=== PATIENT | female | born 1940 | race Caucasian/White ===

== ENCOUNTER 2018-07-29 01:16 | Outpatient (CLI) | payer MEDICARE, SELFPAY ==
[2018-07-29 12:27] LABS: Anion Gap 6.6 mmol/L (3-11); BUN 17 mg/dL (7-18); CO2 30.4 mmol/L (21.0-32.0); Calcium 9.1 mg/dL (8.5-10.1); Chloride 103 mmol/L (98-107); Cholesterol 176 mg/dL (50-200); Estimated GFR 53.91 (mL/min/1.73m2); Glucose 110 mg/dL (70-100); HDL Cholesterol 62 mg/dL (40-60); LDL CHOLESTEROL 98 mg/dL (<100); Potassium 4.5 mmol/L (3.5-5.1); Sodium 140 mmol/L (136-145); Triglyceride 105 mg/dL (30-150)
== END 2018-07-29 01:36 ==
PROVIDERS: PCP Internal Medicine; Visit Provider Internal Medicine
DX: E78.00 Pure hypercholesterolemia, unspecified (principal); I10 Essential (primary) hypertension
CPT/HCPCS: 36415; 80048; 80061; 83721

== ENCOUNTER 2019-08-07 00:54 | Outpatient (CLI) | payer MEDICARE, SELFPAY ==
[2019-08-07 09:03] LABS: Anion Gap 7.5 mmol/L (3-11); BUN 16 mg/dL (7-18); CO2 30.5 mmol/L (21.0-32.0); CREATININE 0.97 mg/dL (0.55-1.02); Calculated LDL 144 mg/dL; Chloride 104 mmol/L (98-107); Cholesterol 223 mg/dL (50-200); Estimated GFR 55.69 (mL/min/1.73m2); Glucose 99 mg/dL (70-100); HDL Cholesterol 60 mg/dL (40-60); Potassium 4.5 mmol/L (3.5-5.1); Sodium 142 mmol/L (136-145); Triglyceride 98 mg/dL (30-150)
== END 2019-08-07 01:14 ==
PROVIDERS: PCP Internal Medicine; Visit Provider Internal Medicine
DX: I10 Essential (primary) hypertension (principal); E78.00 Pure hypercholesterolemia, unspecified
CPT/HCPCS: 36415; 80048; 80061

== ENCOUNTER 2019-08-20 01:38 | Outpatient (CLI) | payer MEDICARE, SELFPAY ==
--- NOTE | 2019-08-20 13:36 | DI.MAMMO_ITS ---
EXAM: MG MAMMO SCREENING CLINICAL HISTORY: screening Z12.39 TECHNIQUE: Mammograms were interpreted according to the usual protocol including computer analysis w [employer] CAD system, tomosynthesis and C-view imaging. COMPARISON: [id number] FINDINGS: The breasts are composed of fatty density tissue, breast density category A. There are no dominant m asses or microcalcifications there has been no significant interval change in comparison with the pre vious exams. IMPRESSION: Category 1, negative mammogram. Routine yearly screening mammograms are recommended. BI-RADS Cat 1 - Negative Breast Density - Category A - Almost entirely fatty
== END 2019-08-20 01:58 ==
PROVIDERS: PCP Internal Medicine; Visit Provider Internal Medicine
DX: Z12.31 Encounter for screening mammogram for malignant neoplasm of breast (principal)
CPT/HCPCS: 77063; 77067

== ENCOUNTER 2020-09-21 02:04 | Outpatient (CLI) | payer MEDICARE, SELFPAY ==
[2020-09-27 09:50] LABS: COVID-19 RT-PCR UVMMC Result Negative (Negative)
== END 2020-09-21 02:24 ==
PROVIDERS: PCP Internal Medicine; Visit Provider Internal Medicine
DX: Z20.828 Contact with and (suspected) exposure to other viral communicable diseases (principal)
CPT/HCPCS: U0003

== ENCOUNTER 2021-09-07 02:33 | Outpatient (CLI) | payer MEDICARE, SELFPAY ==
[2021-09-07 08:36] LABS: ALT 20 U/L (14-59); AST 20 U/L (15-37); Albumin 3.7 g/dL (3.4-5.0); Alkaline Phosphatase 125 U/L (46-116); Anion Gap 7.4 mmol/L (3-11); BUN 14 mg/dL (7-18); Bilirubin, Total 0.8 mg/dL (0.2-1.0); CO2 30.6 mmol/L (21.0-32.0); CREATININE 0.9 mg/dL (0.55-1.02); Calcium 8.8 mg/dL (8.5-10.1); Calculated LDL 174 mg/dL (<100); Chloride 104 mmol/L (98-107); Cholesterol 256 mg/dL (<200); Glucose 99 mg/dL (74-106); HDL Cholesterol 62 mg/dL (40-60); Sodium 142 mmol/L (136-145); Total Protein 6.7 g/dL (6.4-8.2); Triglyceride 103 mg/dL (<150)
== END 2021-09-07 02:34 | disposition home or self-care (01) ==
LOC: LBO 02:34
PROVIDERS: PCP Family Medicine; Visit Provider Family Medicine
DX: I10 Essential (primary) hypertension (principal); E78.00 Pure hypercholesterolemia, unspecified
CPT/HCPCS: 36415; 80053; 80061

== ENCOUNTER 2022-09-21 01:07 | Outpatient (CLI) | payer MEDICARE, SELFPAY ==
[2022-09-21 08:09] LABS: Anion Gap 2.6 mmol/L (3-11); BUN 20 mg/dL (7-18); CO2 31.4 mmol/L (21.0-32.0); CREATININE 1.1 mg/dL (0.55-1.02); Calcium 9.2 mg/dL (8.5-10.1); Chloride 104 mmol/L (98-107); Glucose 112 mg/dL (74-106); Potassium 4.3 mmol/L (3.5-5.1); Sodium 138 mmol/L (136-145)
== END 2022-09-21 01:08 | disposition home or self-care (01) ==
LOC: LBO 01:07
PROVIDERS: PCP Family Medicine; Visit Provider Family Medicine
DX: I10 Essential (primary) hypertension (principal)
CPT/HCPCS: 36415; 80048

== ENCOUNTER 2023-09-07 13:48 | Inpatient (IN) | payer MEDICARE, SELFPAY ==
[2023-09-07] VITALS (28 sets, daily range): BP systolic 115–205; BP diastolic 74–129; PULSE 66–145; RESP 18–32; TEMP 36.1–38.8; O2SAT 80–97
--- NOTE | 2023-09-07 13:45 | RT.EKG_ITS ---
APPROVED REPORT Exam: Resting ECG Reason for Exam: weakness Patient Location: E HR:138 bpm ECG Measurements Heart Rate 138 AXIS ID [id number] P [id number] QRSd 76 QRS 10 QT 301 T 269 QTc 457 Conclusion Atrial fibrillation...V-rate 114-165, irreg A-activity Repolarization abnormality, prob rate related...ST dep, T neg, tachycardia Narrow complex atrial fibrillation with rapid ventricular response at a rate of 138. Normal axis. L imits. Multiple PVCs. No prior for comparison.
--- NOTE | 2023-09-07 14:00 | DI.CT_ITS ---
Exam(s) CT CHEST PE CTA EXAM: CT CHEST PE CTA CLINICAL HISTORY: sob, CP, afib w/ rvr, cough, r/o PE/pneumonia. TECHNIQUE: Imaging Protocol: CT angiography of the chest was performed using pulmonary embolus kinjal col. Multi planar reconstructions were performed. CONTRAST MATERIAL: Intravenous: Omnipaque 350 Contrast volume: 100 cc COMPARISON: CT ABD PELVIS WITH CONTRAST from 08/27/2010 FINDINGS: CHEST: PULMONARY ARTERIES: There are no obvious intraluminal filling defects to suggest acute pulmonary embo li. LUNGS: There is a prominent area of infiltrate in the right middle lobe. There is relative sparing o f the right upper lobe and right lower lobe and there is no pleural effusion. No left-sided infiltra nicole evident. No findings in the trachea and mainstem bronchi.. There are no pleural effusions. MEDIASTINUM: There is no hilar nor mediastinal adenopathy. Visualized thyroid unremarkable. CARDIAC: Mild cardiomegaly. No pericardial effusion.Caliber of the thoracic aorta is within upper no rmal limits. No evidence of aortic dissection. There is no significant shift of the interventricular septum. PARTIALLY VISUALIZED UPPERMOST ABDOMEN: No obvious findings OSSEOUS: No significant osseous lesions.. IMPRESSION: 1. No evidence of acute pulmonary emboli. No pleural effusions. 2. Prominent area of infiltrate in the right middle lobe. 3. No intrathoracic adenopathy. RADIATION DOSE DELIVERED: Total DLP DATA REPOSITORY: All CT scans at this facility are submitted to the National Radiology Data Registry (NRDR) Dose Index Registry (DIR) with the [employer] (ACR). RADIATION OPTIMIZATION: All CT scans at this facility use at least one of these dose optimization te chniques: automated exposure control; mA and/or kV adjustment per patient size (includes targeted exa ms where dose is matched to clinical indication); or iterative reconstruction.
[2023-09-07] MEDS: Normal Saline 500 ML IV (14:21)
[2023-09-07 14:26] LABS: Abs Immature Grans 0.05 10^3/uL (0.0-0.06); Absolute Basophil Count 0.05 10^3/uL (0.0-0.2); Absolute Eosinophil Count 0.01 10^3/uL (0.0-0.7); Absolute Lymphocyte Count 0.85 10^3/uL (1.2-3.4); Absolute Neutrophil Count 7.65 10^3/uL (1.2-6.7); BE (Venous) 3 mmol/L (-2-3); Basophils % 0.5; Eosinophils % 0.1; HCO3 (Venous) 28 mmol/L (23-28); HCT 44.5 % (36.0-46.0); HGB 14.3 g/dL (11.2-15.7); Immature Grans % 0.5; Lymphocytes % 9.1; MCH 30.3 pg (27.0-33.0); MCHC 32.1 % (32.0-36.0); MCV 94 fL (80-95); MPV 11.2 fL (8.0-11.0); Monocytes % 7.5; Neutrophils % 82.3; O2 Sat (Venous) 57 %; Platelet Count 170 10^3/uL (130-400); RBC 4.72 10^6/uL (3.93-5.22); RDW 11.9 % (11.7-14.6); TCO2 (Venous) 26 mmol/L (24-29); WBC 9.31 10^3/uL (4.4-10.8); pCO2 (Venous) 46 mmHg (41-51); pH (Venous) 7.39 (7.31-7.41); pO2 (Venous) 29 mmHg
[2023-09-07 14:28] LABS: Lactate 1.8 mmol/L (0.6-1.4)
--- NOTE | 2023-09-07 14:29 | ED.GENADUL_ITS ---
Discharge Plan Disposition Patient Disposition: Admit to [facility] Condition: Improving Discharge Details Chief Complaint: SOB Clinical Impression: Hypoxemia, Atrial fibrillation, Community acquired pneumonia, Sepsis Primary Care Provider: Kvng Gill ED Provider: Stephon Proctor Home Meds and New Rx's Prescriptions: No Action pramipexole 0.25 mg tablet 0.25 mg PO HS Qty: 90 3RF hydrochlorothiazide 25 mg tablet 25 mg PO DAILY Qty: 90 3RF losartan 25 mg tablet 25 mg PO DAILY Qty: 90 3RF acetaminophen [Tylenol] 325 MG tablet 650 mg PO Q6H PRN aspirin [Mariama Chewable Aspirin] 81 MG tablet,chewable 1 tab PO DAILY Medical Decision Making 82-year-old female with past medical history of chronic kidney disease, restless leg syndrome, high cholesterol, hypertension, presents today for evaluation of feeling poorly. Patient states that since Saturday she has not been feeling well for the last 4 days. She states that it came on relatively quickly, she started with chills, and a mild cough. This is continued over the last 4 days. Over the last 2 days she has had mild shortness of breath with activity, then over the last 24 hours she has had mild chest tightness, worse with exertion. No chest tightness at rest though. She denies any significant productivity with a cough. She denies vomiting or diarrhea. No recent long surgeries, long trips, or history of blood clots or estrogen use. She denies any tobacco use. She denies any urinary frequency or burning. She did recently get her flu and COVID shot/booster. No other complaints at this time. Her is chronically unwell secondary to cancer and heart failure, but no acute illness at home. Physical exam demonstrates crackles in the lung villarreal, oxygenation appears stable however the patient is a bit tachypneic. He does admit to some mild pleuritic component of chest pain as well. No calf tenderness. Bedside echo demonstrates very reasonable ejection fraction around 55 to 60%. She does appear slightly volume diminished. She is in A-fib at a rapid rate, and she denies any history of A-fib. Suspect an infectious or PE based cause to her A- fib and current symptomatology. Suspect potential for cardiac strain. Will evaluate for concerning etiologies, will get a CTA of the chest if her renal function is appropriate, monitor closely and reassess. Will gently rehydrate initially with a 500 cc bolus and evaluate for heart rate change with fluid resuscitation. Blood pressure notably hypertensive. No indication for electrocardioversion, or Cardizem at this time. 4:25 PM Heart rate notably improved after fluid bolus, heart rate now down to the low 100s high 90s. Blood pressure stable. Patient did spike a temperature as well, and developed a mild oxygen demand requiring 2 L of O2 when she dipped down to the high 80s. Laboratory work-up shows no white count but she does have mild left shift. No bandemia. COVID flu and RSV are negative. Lactate slightly elevated at 1.8. Pro-Vinnie slightly elevated at 0.1. Renal function stable. Troponin normal. Thyroid function normal. CTA shows no evidence of PE but does show right middle lobe pneumonia. With the oxygen demand, age, and clinical assessment I do feel that admission is indicated at this time. proBNP is 2000 however she does not appear to be in florid fluid overload on exam. I do not think diuretics would be indicated at this time. She does have a penicillin allergy, we will treat with levofloxacin for atypical and community-acquired coverage. Patient does meet sepsis criteria and, but not septic shock criteria. Discussed the case with the hospitalist, Dr Rodriguez he agrees with the assessment and plan. I have extensively reviewed the treatment plan with the patient. I have addressed all patient concerns at this time. I have also discussed the plan with the admitting physician and they agree with the current assessment and plan and have agreed to assume responsibility for the patient. All parties demonstrate verbal understanding and agreement with our assessment and plan at this time. The documentation in this chart was dictated using [employer] dictation software. Please excuse any dictation errors. FINDINGS: Pulmonary arteries: Normal. No pulmonary emboli. Aorta: Unremarkable. No aortic aneurysm. No aortic dissection. Thyroid: Left thyroid lobe enlargement. Lungs: Right upper lobe subpleural 3 mm lung nodule. 5 mm subpleural nodule right upper lobe. Airspace disease/pneumonia in the right middle lobe. Partial lung consolidation. Pleural spaces: Small right pleural effusion. Heart: Unremarkable. No cardiomegaly. No pericardial effusion. Lymph nodes: Unremarkable. No enlarged lymph nodes. Liver: Left hepatic lobe cyst. Bones/joints: Unremarkable. No acute fracture. Soft tissues: Unremarkable. IMPRESSION: 1. Right middle lobe pneumonia. 2. Left thyroid lobe enlargement. 3. Micronodules.For patients at low risk (minimal or absent history of smoking and of other known risk factors), no routine follow-up is indicated. For patients at high risk (history of smoking or of other known risk factors), consider optional CT Chest at 12 months. (Reference: Heather) REFERENCES: Heather Nicole, et al. Guidelines for Management of Incidental Pulmonary Nodules Detected on CT Images: From the Fleischner Society 2017. Radiology. 2017;284(1):228-243. Thank you for allowing us to participate in the care of your patient. Dictated and Authenticated by: Ebenezer Queen MD 09/07/2023 4:06 PM Eastern Time ([place] & [place]) HPI General Date/Time Provider Initiated Documentation: 09/07/23 14:00 . HPI Narrative: 82-year-old female with past medical history of chronic kidney disease, restless leg syndrome, high cholesterol, hypertension, presents today for evaluation of feeling poorly. Patient states that since Saturday she has not been feeling well for the last 4 days. She states that it came on relatively quickly, she started with chills, and a mild cough. This is continued over the last 4 days. Over the last 2 days she has had mild shortness of breath with activity, then over the last 24 hours she has had mild chest tightness, worse with exertion. No chest tightness at rest though. She denies any significant productivity with a cough. She denies vomiting or diarrhea. No recent long surgeries, long trips, or history of blood clots or estrogen use. She denies any tobacco use. She denies any urinary frequency or burning. She did recently get her flu and COVID shot/booster. No other complaints at this time. Her is chronically unwell secondary to cancer and heart failure, but no acute illness at home. Related Data Home Medications Medication Instructions Recorded Confirmed acetaminophen 325 mg tablet 650 mg PO Q6H PRN 12/20/15 09/07/23 (Tylenol) aspirin 81 mg chewable tablet 1 tab PO DAILY 10/28/17 09/07/23 (Mariama Chewable Low Dose Aspirin) pramipexole 0.25 mg tablet 0.25 mg PO HS #90 tab-caps 10/05/22 09/07/23 hydrochlorothiazide 25 mg tablet 25 mg PO DAILY #90 tabs 07/15/23 09/07/23 losartan 25 mg tablet 25 mg PO DAILY #90 tabs 08/02/23 09/07/23 Previous Rx's Medication Instructions Recorded pramipexole 0.25 mg tablet 0.25 mg PO HS #90 tab-caps 10/05/22 hydrochlorothiazide 25 mg tablet 25 mg PO DAILY #90 tabs 07/15/23 losartan 25 mg tablet 25 mg PO DAILY #90 tabs 08/02/23 Allergies Allergy/AdvReac Type Severity Reaction Status Date / Time lisinopril AdvReac Unknown COUGH Verified 09/07/23 14:00 Penicillins AdvReac Unknown vomiting Verified 09/07/23 14:00 General Stated Complaint: SOB LILLY: 3 Review of Systems All systems reviewed & are unremarkable except as noted in HPI and below PFSH All Active Problems (Updated 09/07/23 @ 16:28 by Stephon Proctor DO) Sepsis (Acute) Community acquired pneumonia (Acute) Atrial fibrillation (Chronic) Hypoxemia (Acute) Chronic kidney disease (Chronic) SARS-CoV-2 positive (Acute ~01/2022) Paxlovid BMI 31.0-31.9,adult (Chronic) Impaired fasting glucose (Acute) Restless legs (Acute 05/03/15) Pure hypercholesterolemia (Acute 05/03/15) Osteoporosis (Acute 05/03/15) Lumbar radiculopathy (Acute 05/02/16) Medical History (Updated 09/07/23 @ 16:28 by Stephon Proctor DO) HTN (hypertension) RLS (restless legs syndrome) HLD (hyperlipidemia) Osteoporosis Lumbar radiculopathy Surgical History Ligation of fallopian tube Lumbar/Sacral Transforaminal Injection (06/05/16) [facility] Extraction of cataract (10/28/17) L eye, Dr. liu Family History (Updated 09/28/21 @ 08:42 by Cony Escamilla RN) Mother Essential hypertension Hyperlipidemia Brother Heart disease Father Cancer Lung Social History (Updated 10/05/22 @ 10:22 by Bianca Thomas) Smoking/Tobacco Use Status: Never Smoking risk assessment performed?: Yes Alcohol Intake: never Drug use: Never Substance use type: does not use Adopted: No Caregiver/Support person: No Foster care: No Household members: spouse Housing: house Number of Children: 3 number of grandchildren: 2 Communication Needs: None Education Level: high school Do you need help understanding health information?: Rarely current occupation: retired Pets and animals: No Sexually active: No Do you think of yourself as: decline to answer Current gender identity: female What is your relationship status?: How often do you talk on the phone with friends or family?: three or more times per week How often do you get together with friends or relatives?: once per week Do you belong to any clubs or organized social groups?: no Panel score (0-1 are the most socially isolated patients): 2 What type of physical activity do you participate in: decline to answer Special fortunato needs: No Seatbelt use: always Drive intox or ride w/intox racing car driver: No Working smoke detector in home: Yes Fire extinguisher in home: Yes Carbon monox detector in home: Yes Do you feel safe at home: Yes Do you feel safe in your relationship?: Yes Exam Narrative Exam Narrative: 1.Const: Well-nourished, Well-developed, appearing stated age 2.Eyes: PERRL, no conjunctival injection, and symmetrical lids. 3.ENT: Atraumatic external nose and ears. Dry MM. Neck: Symmetric, trachea midline, No thyromegaly. 4.CVS: +S1/S2, No murmurs or gallops. Peripheral pulses 2+ and equal in all extremities. Brisk capillary refill in all extremities. 5.RESP: Mild tachypnea, mild crackles in the right lung villarreal, minimal crackles in the left. 6.GI: Soft, Nontender/Nondistended, No hepatosplenomegaly. No guarding or rebound. 7.MSK: Normocephalic/Atraumatic, Extremities w/o deformity or ttp No cyanosis or clubbing, Normal movement of all extremities. No calf tenderness 8.Skin: Warm, Dry. No rashes or lesions. 9.Neuro: association executive II-XII grossly intact. Sensation grossly intact, no focal neurologic deficits. 10.Psych: (AAO) x3. Appropriate mood and affect Course Vital Signs Vital signs: Vital Signs Pulse 134 H 09/07/23 13:51 Respiratory Rate 30 H 09/07/23 13:51 Blood Pressure 205/129 H 09/07/23 13:51 Pulse Oximetry 95 09/07/23 13:51 Pulse 66 09/07/23 14:01 Pulse 138 H 09/07/23 14:01 Respiratory Rate 29 H 09/07/23 14:01 Respiratory Effort Short of Breath 09/07/23 13:56 Blood Pressure 177/90 H 09/07/23 14:01 Blood Pressure Mean 118 09/07/23 14:01 Pulse Oximetry 95 09/07/23 13:51 Oxygen Delivery Method Room Air 09/07/23 13:51 Oxygen Flow Rate 0 09/07/23 13:51 Lab/Test Results Lab/Test Results: Laboratory Tests Range/Units 09/07/23 14:18 VBG pH (7.31-7.41) 7.39 VBG pCO2 (41-51) mmHg 46 VBG pO2 mmHg 29 VBG HCO3 (23-28) mmol/L 28 VBG Total CO2 (24-29) mmol/L 26 VBG O2 Saturation % 57 VBG Base Excess (-2-3) mmol/L 3 VBG Lactate (0.6-1.4) mmol/L 1.8 H Critical Care Time Critical Care Time Critical Care Time: Yes Total Critical Care Time: 30 Attestation: Upon my evaluation, this patient had a high probability of imminent or life- threatening deterioration, which required my direct attention, intervention, and personal management. I have personally provided 30 minutes of critical care time exclusive of time spent on separately billable procedures. Time includes review of laboratory data, radiology results, discussion with consultants, and monitoring for potential decompensation. Interventions were performed as documented. POCUS Exam (ED) Limited Cardiac Exam DATE OF EXAM: 09/07/23 TIME OF EXAM: 14:29 PROVIDER THAT PERFORMED THE STUDY: Stephon Proctor IS THIS A REPEAT EXAM DURING THIS ENCOUNTER: no REASON FOR EXAM: Dyspnea VISUALIZED STRUCTURES: Left atrium, Left ventricle, Right ventricle and Interventricular septum VIEW OBTAINED: Parasternal long-axis PERTINENT FINDINGS/IMPRESSION: No apparent abnormalities Exam complete
[2023-09-07 14:42] LABS: INR 1.1 (0.9-1.1); PTT Activated 28.9 sec (23.6-32.8)
[2023-09-07 14:54] LABS: ALT 16 U/L (14-59); AST 17 U/L (15-37); Albumin 3.5 g/dL (3.4-5.0); Alkaline Phosphatase 110 U/L (46-116); Anion Gap 8.9 mmol/L (3-11); BUN 25 mg/dL (7-18); Bilirubin, Total 1.2 mg/dL (0.2-1.0); CO2 30.1 mmol/L (21.0-32.0); CREATININE 1.3 mg/dL (0.55-1.02); Calcium 9.7 mg/dL (8.5-10.1); Chloride 99 mmol/L (98-107); Estimated GFR 41.31 (mL/min/1.73m2); Glucose 115 mg/dL (74-106); NT-proBNP 2135 pg/mL (<300); Potassium 3.8 mmol/L (3.5-5.1); Sodium 138 mmol/L (136-145); TSH (W/Ref FT4) 0.24 uIU/mL (0.36-3.74); Total Protein 7.9 g/dL (6.4-8.2); Troponin I < 50 ng/L (<or=60)
[2023-09-07] MEDS: Omnipaque 350 MG/ML 100 ML BTL IJ (15:08)
[2023-09-07] MEDS: Normal Saline - Diluent 50 ML VIAL IJ (15:10)
[2023-09-07 15:11] LABS: COVID-19 PCR Negative (Negative); Influenza A PCR Negative (Negative); Influenza B PCR Negative (Negative); RSV PCR Negative (Negative)
[2023-09-07 15:16] LABS: FREE T4 1.39 ng/dL (0.76-1.46)
[2023-09-07 15:16] LABS: Source Nasopharynx
[2023-09-07] MEDS: ACETAMINOPHEN 1,000 MG/100 ML BTL 400 MG IVPB (15:55)
[2023-09-07] MEDS: levoFLOXacin 750 MG/150 ML BAG 100 MG IVPB (15:56)
[2023-09-07 15:58] LABS: Procalcitonin 0.1 ng/mL
--- NOTE | 2023-09-07 16:07 | DI.VRAD_ITS ---
PROCEDURE INFORMATION: Exam: CTA Chest With Contrast Exam date and time: 09/07/2023 3:05 PM Age: 82 years old Clinical indication: Cough and shortness of breath; Patient HX: SOB, cp, afib w/ rvr, cough, ; additional info: R/O pe, pneumonia TECHNIQUE: Imaging protocol: Computed tomographic angiography of the chest with contrast. Exam focused on the arteries. 3D rendering (Not supervised by radiologist): MIP and/or 3D reconstructed images were created by the technologist. COMPARISON: No relevant prior studies available. FINDINGS: Pulmonary arteries: Normal. No pulmonary emboli. Aorta: Unremarkable. No aortic aneurysm. No aortic dissection. Thyroid: Left thyroid lobe enlargement. Lungs: Right upper lobe subpleural 3 mm lung nodule. 5 mm subpleural nodule right upper lobe. Airspace disease/pneumonia in the right middle lobe. Partial lung consolidation. Pleural spaces: Small right pleural effusion. Heart: Unremarkable. No cardiomegaly. No pericardial effusion. Lymph nodes: Unremarkable. No enlarged lymph nodes. Liver: Left hepatic lobe cyst. Bones/joints: Unremarkable. No acute fracture. Soft tissues: Unremarkable. IMPRESSION: 1. Right middle lobe pneumonia. 2. Left thyroid lobe enlargement. 3. Micronodules.For patients at low risk (minimal or absent history of smoking and of other known risk factors), no routine follow-up is indicated. For patients at high risk (history of smoking or of other known risk factors), consider optional CT Chest at 12 months. (Reference: Heather) REFERENCES: Heather H, et al. Guidelines for Management of Incidental Pulmonary Nodules Detected on CT Images: From the Fleischner Society 2017. Radiology. 2017;284(1):228-243. Dictated and Authenticated by: Ebenezer Queen MD. Ordering:JUMANA Szymanski MD
--- NOTE | 2023-09-07 16:28 | W.PM.HP.N ---
Date of service: 09/07/23 Time of Service: 16:53 Assessment and Plan Assessment and plan (1) Sepsis: Status: Acute Assessment and plan: - Patient met sepsis criteria on admission with heart rate greater than 90, respiratory rate greater than 20, and a fever of 102 ?F as well as source of infection being right middle lobe pneumonia -Heart rate has improved after initiation of IV fluids -Started on Levaquin given penicillin allergy, will continue -We will follow-up with blood cultures, and a.m. CBC Qualifiers: Sepsis acute organ dysfunction status: without acute organ dysfunction Sepsis type: sepsis due to unspecified organism Qualified Code(s): A41.9 - Sepsis, unspecified organism (2) Community acquired pneumonia: Status: Acute Assessment and plan: -Source of infection as noted above Qualifiers: Laterality: right Lung location: middle lobe of lung Qualified Code(s): J18.9 - Pneumonia, unspecified organism (3) Atrial fibrillation: Status: Chronic Assessment and plan: - Patient initially presented with A-fib RVR with heart rate 130 -This resolved after patient was given IV fluids -This is likely a stress reaction due to patient's pneumonia -We will monitor on telemetry Qualifiers: Atrial fibrillation type: unspecified Qualified Code(s): I48.91 - Unspecified atrial fibrillation (4) Acute respiratory failure with hypoxia: Status: Acute Assessment and plan: - Likely secondary to sepsis community-acquired pneumonia as noted above -Currently on 2 L nasal cannula -Wean as tolerated with goal oxygen saturation greater than 92% (5) Chronic kidney disease: Status: Chronic Assessment and plan: - Baseline creatinine 1.1, was 1.3 in the emergency department -We will follow-up a.m. BMP (6) HTN (hypertension): Assessment and plan: - Continue home antihypertensives including HCTZ and losartan History of Present Illness History of Present Illness Chief Complaint: Feeling unwell Narrative: 82-year-old female with past medical history of CKD, restless leg, hyperlipidemia and hypertension presenting emergency department for feeling poorly. She states that since 09/04/2023 she had not been feeling well stating that this feeling came on quick and associated with chills and a mild cough that continued over the last 4 days. Over the last 2 days she states she developed mild shortness of breath with exertion and over the last 4 days progressed to some chest tightness with exertion but not at rest. She states she does have a cough but has not been productive of any sputum. She denies any lightheadedness, dizziness, nausea vomiting or diarrhea. In the emergency department the patient was noted as being tachycardic with heart rate in the 130s that was determined to be A-fib RVR and the patient has no history. Blood pressure was 166/78, respiratory rate was in the high 20s low 30s, initially she was saturating well on room air but ultimately required 2 L nasal cannula to maintain oxygen saturation greater than 92%. CBC and CMP were unremarkable though proBNP was 2134, Pro-Vinnie was 0.11, troponin was negative, and lactic acid was 1.8. Given concern for possible PE a CTA chest was ordered and showed right middle lobe pneumonia. Patient had penicillin allergy and was started on Levaquin. Which time emergency room physician paged hospitalist for admission for patient with sepsis secondary to community-acquired pneumonia with acute hypoxic respiratory failure. Review of Systems All systems reviewed & are unremarkable except as noted in HPI and below PFSH All Active Problems (Updated 09/07/23 @ 16:58 by Issa Rodriguez MD) Acute respiratory failure with hypoxia (Acute) Sepsis (Acute) Community acquired pneumonia (Acute) Atrial fibrillation (Chronic) Hypoxemia (Acute) Chronic kidney disease (Chronic) SARS-CoV-2 positive (Acute ~01/2022) Paxlovid BMI 31.0-31.9,adult (Chronic) Impaired fasting glucose (Acute) Restless legs (Acute 05/03/15) Pure hypercholesterolemia (Acute 05/03/15) Osteoporosis (Acute 05/03/15) Lumbar radiculopathy (Acute 05/02/16) Medical History (Updated 09/07/23 @ 16:58 by Issa Rodriguez MD) HTN (hypertension) RLS (restless legs syndrome) HLD (hyperlipidemia) Osteoporosis Lumbar radiculopathy Surgical History Ligation of fallopian tube Lumbar/Sacral Transforaminal Injection (06/05/16) Pain [facility] Extraction of cataract (10/28/17) L eye, Dr. liu Family History (Updated 09/28/21 @ 08:42 by Cony Escamilla RN) Mother Essential hypertension Hyperlipidemia Brother Heart disease Father Cancer Lung Social History (Updated 10/05/22 @ 10:22 by Bianca Thomas) Smoking/Tobacco Use Status: Never Smoking risk assessment performed?: Yes Alcohol Intake: never Drug use: Never Substance use type: does not use Adopted: No Caregiver/Support person: No Foster care: No Household members: spouse Housing: house Number of Children: 3 number of grandchildren: 2 Communication Needs: None Education Level: high school Do you need help understanding health information?: Rarely current occupation: retired Pets and animals: No Sexually active: No Do you think of yourself as: decline to answer Current gender identity: female What is your relationship status?: How often do you talk on the phone with friends or family?: three or more times per week How often do you get together with friends or relatives?: once per week Do you belong to any clubs or organized social groups?: no Panel score (0-1 are the most socially isolated patients): 2 What type of physical activity do you participate in: decline to answer Special fortunato needs: No Seatbelt use: always Drive intox 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 Working smoke detector in home: Yes Fire extinguisher in home: Yes Carbon monox detector in home: Yes Do you feel safe at home: Yes Do you feel safe in your relationship?: Yes Meds Allergies and Home Medications Allergies Allergy/AdvReac Type Severity Reaction Status Date / Time lisinopril AdvReac Unknown COUGH Verified 09/07/23 14:00 Penicillins AdvReac Unknown vomiting Verified 09/07/23 14:00 Home Medications Medication Instructions Recorded Confirmed Type acetaminophen 325 mg tablet 650 mg PO Q6H PRN 12/20/15 09/07/23 History (Tylenol) aspirin 81 mg chewable tablet 1 tab PO DAILY 10/28/17 09/07/23 History (Mariama Chewable Low Dose Aspirin) pramipexole 0.25 mg tablet 0.25 mg PO HS #90 tab-caps 10/05/22 09/07/23 Rx hydrochlorothiazide 25 mg tablet 25 mg PO DAILY #90 tabs 07/15/23 09/07/23 Rx losartan 25 mg tablet 25 mg PO DAILY #90 tabs 08/02/23 09/07/23 Rx Exam Narrative Exam Narrative: Well-appearing older female sitting on the edge of the bed in no acute distress, nasal cannula has since been removed, heart regular rate and rhythm, lungs clear to auscultation bilaterally with the exception of coarse of breath sounds in the right middle and lower lobe, abdomen soft, nontender, nondistended Results Labs 09/07/23 14:18 09/07/23 14:18 Labs: Laboratory Results - last 24 hr 09/07/23 09/07/23 09/07/23 14:18 14:20 15:00 WBC 9.31 RBC 4.72 Hgb 14.3 Hct 44.5 MCV 94 MCH 30.3 MCHC 32.1 RDW 11.9 Plt Count 170 MPV 11.2 H Immature Gran % 0.5 Neutrophils % 82.3 Lymphocytes % 9.1 Monocytes % 7.5 Eosinophils % 0.1 Basophils % 0.5 Nucleated RBC % 0.0 Absolute Neutrophils 7.65 H Absolute Lymphocytes 0.85 L Absolute Monocytes 0.70 Absolute Eosinophils 0.01 Absolute Basophils 0.05 PT 11.0 INR 1.1 APTT 28.9 VBG pH 7.39 VBG pCO2 46 VBG pO2 29 VBG HCO3 28 VBG Total CO2 26 VBG O2 Saturation 57 VBG Base Excess 3 VBG Lactate 1.8 H Sodium 138 Potassium 3.8 Chloride 99 Carbon Dioxide 30.1 Anion Gap 8.9 BUN 25 H Creatinine 1.3 H Est GFR (CKD-EPI 2020) 41.31 Glucose 115 H Calcium 9.7 Total Bilirubin 1.2 H AST 17 ALT 16 Alkaline Phosphatase 110 Troponin I < 50 NT-Pro-B Natriuret Pep 2135 H Total Protein 7.9 Albumin 3.5 Procalcitonin 0.1 TSH 0.24 L Free T4 1.39 COVID-19 Source Nasopharynx SARS-CoV-2 (PCR) Negative Influenza Type A (PCR) Negative Influenza Type B (PCR) Negative RSV (PCR) Negative Last Vital Signs Temp 102 F H 09/07/23 15:45 Pulse 107 H 09/07/23 14:31 Resp 32 H 09/07/23 15:50 BP 166/77 H 09/07/23 14:31 Pulse Ox 95 09/07/23 15:50 Time Spent Time spent with Patient: >75 minutes Time was spent: preparing to see the patient(eg.review tests), obtaining and/or reviewing separately otained hiistory, ordering medications,tests, procedures, referring, communicating with other health career resource specialist, indepentently interpreting results, counseling the patient and care coordination
[2023-09-07 18:04] LABS: Troponin I < 50 ng/L (<or=60)
[2023-09-07 18:52] LABS: Bilirubin Negative (Negative); Blood Negative (Negative); Clarity Clear (Clear); Glucose Negative (Negative); Ketones 15 mg/dL (Negative); Leukocyte Esterase Negative (Negative); Nitrite Negative (Negative); pH 5.5 (5-8)
[2023-09-07 19:04] LABS: Bacteria Rare HPF (Negative); C & S Indicated? C&S Done As Ordered; Casts Negative LPF (Negative); Crystals Negative HPF (Negative); Epithelial Cells Rare HPF (Negative); Mucus Negative (Negative); RBC Negative HPF (0-2); WBC 0-2 HPF (0-5)
[2023-09-07] MEDS: Pramipexole 0.25 MG TAB PO (21:13)
[2023-09-07] MEDS: Acetaminophen 325 MG TAB PO (22:27)
[2023-09-08] VITALS (7 sets, daily range): BP systolic 124–166; BP diastolic 75–87; PULSE 70–98; RESP 14–18; TEMP 35.8–36.7; O2SAT 92–97
[2023-09-08 06:22] LABS: HCT 35.8 % (36.0-46.0); HGB 11.4 g/dL (11.2-15.7); MCH 29.9 pg (27.0-33.0); MCHC 31.8 % (32.0-36.0); MCV 94 fL (80-95); MPV 11.4 fL (8.0-11.0); Platelet Count 133 10^3/uL (130-400); RBC 3.81 10^6/uL (3.93-5.22); RDW 12.1 % (11.7-14.6); WBC 8.14 10^3/uL (4.4-10.8)
[2023-09-08 06:37] LABS: BUN 20 mg/dL (7-18); CREATININE 1.1 mg/dL (0.55-1.02); Chloride 103 mmol/L (98-107); Estimated GFR 50.48 (mL/min/1.73m2); Glucose 101 mg/dL (74-106); Magnesium 1.8 mg/dL (1.8-2.4); Potassium 3.5 mmol/L (3.5-5.1); Sodium 137 mmol/L (136-145)
[2023-09-08] MEDS: Losartan 25 MG TAB PO (08:36)
[2023-09-08] MEDS: hydroCHLOROthiazide 25 MG TAB PO (08:36)
[2023-09-08] MEDS: Enoxaparin 40 MG/0.4 ML SYR SC (08:36)
[2023-09-08] MEDS: Aspirin 81 MG CHEW PO (08:36)
--- NOTE | 2023-09-08 09:10 | PDOC.CMIN ---
Date of service: 09/08/23 Time of Service: 09:10 Care Management Initial Assmt Initial Assessment REASON FOR HOSPITALIZATION:: sepsis and pneumonia PREVIOUS FUNCTIONAL STATUS/SOCIAL/FAMILY SUPPORTS:: Kenna lives in a single family home in [place], [place] with her Stanislav. They have 3 children who all live out of state. They also have 4 grandchildren and 3 great grandchildren. 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 She is independent at baseline and does not receive any community services. CURRENT FUNCTIONAL STATUS:: Leticia was sitting up in bed chatting with a visitor when CM met with her. She was smiling and engaged readily with CM, known to her from other hospitalizations. Her was hospitalized just last month and CM worked with him as well. In talking about her family, Leticia shared that 2 of her children and all of her grandchildren have visited within the past month or two. As one is from [place] and another is from [place], they do not have that opportunity very often. ADVANCE DIRECTIVES:: ON file. Stanislav Hill VANESSA Has patient been provided with info about the portal/API?: Yes Did the patient sign up for the portal?: No CODE STATUS:: DNR/DNI INSURANCE COVERAGE / FINANCIAL ISSUES:: [employer] Medicare Supplement CURRENT HOME/COMMUNITY SERVICES/EQUIPMENT:: none PRIMARY CARE PHYSICIAN:: Kvng Gill POTENTIAL DISCHARGE NEEDS:: follow up with PCP and plan of care PATIENT/FAMILY EDUCATION NEEDS:: Review of discharge instructions, activity, limitations, follow up plan, discuss Ask Me Three TRANSPORTATION:: via private vehicle with family PLAN:: Anticipate Kenna will be discharged home with no new services when medically cleared. She will follow up with her community providers and plan of care and transport with family. CM will support Kenna and assess for ongoing discharge concerns. PFSH All Active Problems (Updated 09/07/23 @ 16:58 by Issa Rodriguez MD) Acute respiratory failure with hypoxia (Acute) Sepsis (Acute) Community acquired pneumonia (Acute) Atrial fibrillation (Chronic) Hypoxemia (Acute) Chronic kidney disease (Chronic) SARS-CoV-2 positive (Acute ~01/2022) Paxlovid BMI 31.0-31.9,adult (Chronic) Impaired fasting glucose (Acute) Restless legs (Acute 05/03/15) Pure hypercholesterolemia (Acute 05/03/15) Osteoporosis (Acute 05/03/15) Lumbar radiculopathy (Acute 05/02/16) Medical History (Updated 09/07/23 @ 16:58 by Issa Rodriguez MD) HTN (hypertension) RLS (restless legs syndrome) HLD (hyperlipidemia) Osteoporosis Lumbar radiculopathy Surgical History Ligation of fallopian tube Lumbar/Sacral Transforaminal Injection (06/05/16) Pain [facility] Extraction of cataract (10/28/17) L eye, Dr. liu Family History (Updated 09/28/21 @ 08:42 by Cony Escamilla RN) Mother Essential hypertension Hyperlipidemia Brother Heart disease Father Cancer Lung Social History (Updated 10/05/22 @ 10:22 by Bianca Thomas) Smoking/Tobacco Use Status: Never Smoking risk assessment performed?: Yes Alcohol Intake: never Drug use: Never Substance use type: does not use Adopted: No Caregiver/Support person: No Foster care: No Household members: spouse Housing: house Number of Children: 3 number of grandchildren: 2 Communication Needs: None Education Level: high school Do you need help understanding health information?: Rarely current occupation: retired Pets and animals: No Sexually active: No Do you think of yourself as: decline to answer Current gender identity: female What is your relationship status?: How often do you talk on the phone with friends or family?: three or more times per week How often do you get together with friends or relatives?: once per week Do you belong to any clubs or organized social groups?: no Panel score (0-1 are the most socially isolated patients): 2 What type of physical activity do you participate in: decline to answer Special fortunato needs: No Seatbelt use: always Drive intox or ride 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
[2023-09-08 12:44] LABS: HCT 39.8 % (36.0-46.0); HGB 12.7 g/dL (11.2-15.7)
--- NOTE | 2023-09-08 15:58 | W.PM.PROGNOT ---
Date of Service Date of service: 09/08/23 Time of Service: 15:58 Assessment and Plan Assessment and plan (1) Sepsis: Status: Acute Assessment and plan: Clinically better. Continue levofloxacin. Await blood cx. Obtain PNA studies. Encourage IS/acapella. Qualifiers: Sepsis type: sepsis due to unspecified organism Sepsis acute organ dysfunction status: without acute organ dysfunction Qualified Code(s): A41.9 - Sepsis, unspecified organism (2) Community acquired pneumonia: Status: Acute Assessment and plan: As above Qualifiers: Laterality: right Lung location: middle lobe of lung Qualified Code(s): J18.9 - Pneumonia, unspecified organism (3) Atrial fibrillation: Status: Resolved Assessment and plan: A single episode in setting acute illness, resolved with IVF. Continue monitoring on tele. Obtain an echocardiogram. I do note a low TSH which will be repeated in am. Qualifiers: Atrial fibrillation type: unspecified Qualified Code(s): I48.91 - Unspecified atrial fibrillation (4) Acute respiratory failure with hypoxia: Status: Resolved Assessment and plan: In setting of PNA. Passed exercise oximetry on RA. Continue to Monitor O2 sats. (5) Chronic kidney disease: Status: Chronic Assessment and plan: Near baseline. Recheck labs in am. (6) HTN (hypertension): Assessment and plan: Continue home HCTZ and losartan (7) DVT prophylaxis: Status: Acute Assessment and plan: SC enoxaparin (8) Discharge planning issues: Status: Acute Assessment and plan: DNR/DNI C/s PT Anticipate discharge home in the next 24 - 48 hrs Subjective Subjective Interval history since last seen: Ms Hill states that she is feeling better but not back to normal. Describes right-sided rib/chest pain on cough (nonproductive). Denies dizziness, SOB at rest, nausea. Does report COLLAZO and feeling unsteady on her feet, requiring a walker, which she usually does not. She agrees to stay in the hospital another day to get evaluated by PT. Passed exercise oximetry on RA. Exam Narrative Exam Narrative: General: Pleasant elderly female who is A&Ox3, sitting up comfortably in a chair, looks tired HEENT: EOMI, MMM Heart: RRR, no m/r/g Lungs: expiratory wheezing on R Abdomen: soft, nontender, nondistended Extremities: no edema BLEs Objective Last Vital Signs Temp 36.1 C L 09/08/23 15:33 Pulse 93 H 09/08/23 15:33 Resp 18 09/08/23 15:33 BP 127/79 09/08/23 15:33 Pulse Ox 95 09/08/23 15:33 Laboratory Results - last 24 hr 09/07/23 09/07/23 09/07/23 15:00 17:35 18:00 WBC RBC Hgb Hct MCV MCH MCHC RDW Plt Count MPV Sodium Potassium Chloride Carbon Dioxide Anion Gap BUN Creatinine Est GFR (CKD-EPI 2020) Glucose Calcium Magnesium Troponin I < 50 Procalcitonin 0.1 Urine Color Yellow Urine Clarity Clear Urine pH 5.5 Ur Specific [place] 1.010 Urine Protein 30 H Urine Ketones 15 H Urine Blood Negative Urine Nitrite Negative Urine Bilirubin Negative Urine Urobilinogen 1.0 H Ur Leukocyte Esterase Negative Urine RBC Negative Urine WBC 0-2 Ur Epithelial Cells Rare Urine Crystals Negative Urine Bacteria Rare Urine Casts Negative Urine Mucus Negative Ur Culture Indicated? C&S Done As Ordered Urine Glucose Negative 09/08/23 09/08/23 05:39 12:27 WBC 8.14 RBC 3.81 L Hgb 11.4 D 12.7 Hct 35.8 L 39.8 MCV 94 MCH 29.9 MCHC 31.8 L RDW 12.1 Plt Count 133 MPV 11.4 H Sodium 137 Potassium 3.5 Chloride 103 Carbon Dioxide 28.0 Anion Gap 6.0 BUN 20 H Creatinine 1.1 H Est GFR (CKD-EPI 2020) 50.48 Glucose 101 Calcium 9.0 Magnesium 1.8 Troponin I Procalcitonin Urine Color Urine Clarity Urine pH Ur Specific [place] Urine Protein Urine Ketones Urine Blood Urine Nitrite Urine Bilirubin Urine Urobilinogen Ur Leukocyte Esterase Urine RBC Urine WBC Ur Epithelial Cells Urine Crystals Urine Bacteria Urine Casts Urine Mucus Ur Culture Indicated? Urine Glucose Time Spent with Patient Time Spent with Patient: 25-34 minutes Time was spent: preparing to see the patient(eg.review tests), obtaining and/or reviewing separately otained hiistory, ordering medications,tests, procedures, referring, communicating with other health critical care paramedic, indepentently interpreting results, counseling the patient and care coordination
[2023-09-08] MEDS: Pramipexole 0.25 MG TAB PO (21:48)
[2023-09-09] MEDS: Metoprolol 12.5 MG TAB PO ×2 (00:26→08:13)
[2023-09-09 02:25] VITALS: BP 138/91; PULSE 106; RESP 18; TEMP 36.6; O2SAT 91
[2023-09-09 02:30] VITALS: O2SAT 95
[2023-09-09 02:32] VITALS: RESP 20
[2023-09-09 06:46] LABS: Abs Immature Grans 0.04 10^3/uL (0.0-0.06); Absolute Basophil Count 0.05 10^3/uL (0.0-0.2); Absolute Eosinophil Count 0.06 10^3/uL (0.0-0.7); Absolute Lymphocyte Count 1.13 10^3/uL (1.2-3.4); Absolute Monocyte Count 0.66 10^3/uL (0.1-0.8); Absolute Neutrophil Count 4.57 10^3/uL (1.2-6.7); Basophils % 0.8; Eosinophils % 0.9; HCT 36.7 % (36.0-46.0); HGB 12.1 g/dL (11.2-15.7); Immature Grans % 0.6; Lymphocytes % 17.4; MCV 94 fL (80-95); MPV 11.7 fL (8.0-11.0); Monocytes % 10.1; Neutrophils % 70.2; Platelet Count 168 10^3/uL (130-400); RDW 12.3 % (11.7-14.6); RDW-SD 42.6 fL; WBC 6.51 10^3/uL (4.4-10.8)
[2023-09-09 07:12] LABS: Anion Gap 6.1 mmol/L (3-11); BUN 24 mg/dL (7-18); CO2 28.9 mmol/L (21.0-32.0); CREATININE 1.1 mg/dL (0.55-1.02); Chloride 104 mmol/L (98-107); Estimated GFR 50.48 (mL/min/1.73m2); Glucose 114 mg/dL (74-106); Magnesium 1.6 mg/dL (1.8-2.4); Potassium 3.6 mmol/L (3.5-5.1); Sodium 139 mmol/L (136-145); TSH 0.54 uIU/mL (0.36-3.74)
[2023-09-09 07:46] VITALS: BP 114/62; PULSE 99; RESP 17; TEMP 36.9; O2SAT 94
--- NOTE | 2023-09-09 08:00 | DI.US_ITS ---
APPROVED REPORT EXAM: Comprehensive 2D, Doppler, and color-flow Echocardiogram Patient Location: In-Patient Room/Bed: 229 Converting Supervisor: Issa Mcdowell RDCS (AE) Indications: afib Other Information Study Quality: Adequate Conclusion Mild concentric left ventricular hypertrophy. Small left ventricular chamber size. Ejection fractio n Ryan's biplane is 83%. Visually it appears 60 to 65%. There are no segmental wall motion abnor malities. Diastolic function is indeterminate given atrial fibrillation Normal right ventricular size and systolic function Left atrium is mildly enlarged. Normal right atrial size Aortic valve is sclerotic without stenosis or regurgitation Mitral annular calcification. Mild mitral regurgitation Mild tricuspid regurgitation. Estimated right ventricular systolic pressure is 22 mmHg Wall motion Left Ventricle Left ventricular cavity is small. The left ventricular systolic function is normal. The left ventricu lar ejection fraction is within the normal range. Mild concentric left ventricular hypertrophy. There is global hypokinesis of the left ventricle. Indeterminate due to atrial fibrillation There is no ve ntricular septal defect visualized. LVEF is 60-65%. Right Ventricle The right ventricle is normal size. Right ventricular systolic function is grossly normal. The RVSP i s 22.5 mmHg. Atria Left atrium is mildly dilated. The right atrium size is normal. The interatrial septum is intact with no evidence for an atrial septal defect. Aortic Valve The Aortic valve is sclerotic. Aortic valve is trileaflet. There is no aortic valvular stenosis. No a ortic regurgitation is present. Mitral Valve Moderate mitral annular calcification. No evidence of mitral valve stenosis. Mild mitral regurgitatio n. Tricuspid Valve The tricuspid valve is normal in structure. There is no tricuspid valve stenosis. Mild tricuspid regu rgitation. Pulmonic Valve The pulmonary valve is normal in structure. There is no pulmonic valvular stenosis. There is no pulmo michael valvular regurgitation. Great Vessels Aortic root is normal in size. The ascending aorta is normal in size. Aortic arch is normal in calibe r. IVC is normal in size and collapses >50% with inspiration. Pericardium There is no pericardial effusion. 2D Dimensions IVSD d PLAX 1.12 cm F: 0.6-1.0 Ao Root d 3.38 cm F: 2.7 - 3.3 LVPW d PLAX 1.07 cm F: 0.6 - 1.0 Ao Asc Diam d 3.18 cm F: 2.3 - 3.1 LVID d PLAX 3.14 cm F: 3.8 - 5.2 LVDs 1.55 cm F: 2.2 - 3.5 LV EF Teichholz 82.9 % FS 50.43 % LV EDV (Teich) 39.0 mL LV ESV (Teich) 6.7 mL Stroke Vol Index (Teich) 17.97 Auto EF LV EDV A4C 57.6 mL LV EDV A2C 45.2 mL LV EDV BP LV ESV A4C 30.8 mL LV ESV A2C 23.6 mL LV ESV BP LVEF(%) A4C 46.5 % LVEF(%) A2C 47.7 % LVEF(%) BP LV SV A4C 26.8 ml LV SV A2C 21.6 ml LV SV BP LV CO A4C 3.0 L/min LV CO A2C 2.5 L/min LV CO BP HR A4C 113.21 BPM HR A2C 117.66 BPM LV EDV Index (BP) LA Volume LA Length A4C 5.5 cm LA Length A2C LA Area A4C s 14.36 cm2 LA Area A2C s LA Vol A4C A-L 32.02 mL LA Vol A2C A-L LA Vol Biplane A-L LA Vol A4C MOD 30.5 mL LA Vol A2C MOD LA Vol BP MOD RA Volume RA Area A4C 9.8 cm2 RA ESV A4C (A-L) 20.6mL RA Vol/BSA A4C A-L RA Length A4C 4.0 cm RA ESV A4C (MOD) 19.5mL LV Diastology MV E' medial 0.097 (>0.07 m/s) MV E Vmax 1.08 (0.4-1.3 m/s) MV E/E' MED 11.11 (<14) MV A Vmax 0.60 (0.4-1.3 m/s) MV E' lateral 0.129 (>0.1 m/s) E/A Ratio 1.8 MV E/E' LAT 8.41 (<14) MV E' Average 0.113 m/s MV E/E'(average) 9.57 Aortic Valve AoV Vmax 1.17 m/s LVOT Vmax 0.99 m/s AoV Peak Grad 5.4 mmHg LVOT Peak Grad 3.9 mmHg AoV Area (Vmax) 2.56 cm2 LVOT VTI 0.162 m AoV VTI 0.223 m LVOT Mean Grad 2.0 mmHg AoV Mean Bishop. 0.83 m/s LVOT SV 48.60 mL AoV Mean Grad 3.1 mmHg LVOT Diam s 1.95 cm AoV Area (VTI) 2.18 cm2 Velocity Ratio 0.85 Mitral Valve MV DT 203 (160-240 msec) Pulmonary Valve PV Vmax 0.86 (0.5-1.5 m/s) RVOT Vmax 0.66 m/s PV Peak Grad 2.9 mmHg RVOT Peak Gr. 1.7 mmHg PV Mean Bishop 0.66 m/s RVOT VTI 0.102 m PV Mean Grad 1.9 mmHg RVOT Mean Gr. 1.0 mmHg Tricuspid Valve RA Pressure 3.00 mmHg TR Vmax 2.21 m/s TR Peak Grad 19.5 mmHg RVSP (TR) 22.5 mmHg
[2023-09-09] MEDS: Aspirin 81 MG CHEW PO (08:13)
[2023-09-09] MEDS: MAGNESIUM SULFATE 2 GM/50 ML BAG IVPB (08:14)
[2023-09-09] MEDS: hydroCHLOROthiazide 25 MG TAB PO (08:14)
[2023-09-09] MEDS: Enoxaparin 40 MG/0.4 ML SYR SC (08:14)
[2023-09-09] MEDS: Losartan 25 MG TAB PO (08:14)
--- NOTE | 2023-09-09 11:30 | PT.INIE ---
PT Notes Visit Reasons: Sepsis PNA, acute hypoxic resp failure Date: 09/09/23 Referring Doctor: Jonelle Suárez PT Orders: PT CONSULT: Limited ability Precautions: Standard Patient Profile/Admitting Diagnosis: 82 y o female admitted for medical management of community acquired Rt lung pneumonia, with resulting sepsis with acute organ dysfunction. Experienced single episode of A-Fib due to illness and hypoxia, in presence of CKD. Social History/Home Situation: Lives in a private one level ranch home, in [facility], with her . 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 She does not generally utilize and assistive device. She still drives, and is able to do all homemaking duties. Equipment Owned/DME: None Subjective: Feeling very tired, and low energy. She is much better then she was, and is looking forward to getting home to her . She has been up moving about the hospital room with ease, using a RW. Objective: General Observation: Sitting upright in recliner, IV left cubitol fossa, telemetry in place Mental Status: A & O x 3 ROM: Right Upper Extremity: WNL Left Upper Extremity: WNL Right Lower Extremity: WNL Left Lower Extremity:WNL Strength: Right Upper Extremity: Grossly 4/5 Left Upper Extremity: Grossly 4/5 Right Lower Extremity: Grossly 4+/5 Left Lower Extremity: Grossly 4+/5 Bed Mobility/Transfers: Independent with all bed mobility, change of position, sit<>stand to and from RW, supervision with ambulation and stair navigation with RW Gait: 100 ft x 2 RW supervision, 4 6 steps up and down with rail, supervision. O2 sat drops to 85% on room air with ambulation, with quick recovery upon sitting post 2 min to 95%. Balance: Static Sitting: Good Dynamic Sitting: Good Static Standing: Good with RW Dynamic Standing: Fair with RW Special Tests: Mobility Limitations Standardized Measure [facility] AM-PAC 6 clicks Basic Mobility Inpatient Short Form: 20% disability Informed Consent/Education: Patient instructed in purpose of PT consult and plan of care. Treatment: Initial evaluation [id number] Assessment: Patient is an 82 year old female referred to physical therapy services with reason for PT evaluation of limited ability with admitted diagnosis of pneumonia and sepsis without organ dysfunction. Patient presents with functional mobility, stability and balance ability for safe return home. She will require a RW for household ambulation and transfer in and out of home and from vehicle, given her current lethargic state as she recovers from pneumonia and oxygen desaturation with activity, leaving in need of external support to decrease physical strain on functional mobility, and improve safety with mobility and decrease fall risk. She is safe to return home with RW, and with supervision of family friend intending to be with her. Her oxygen absorption is anticipated to stable and be less challenged as she continues to recover from her pneumonia, and her activity tolerance will improve. Patient demonstrates understanding of energy conservation, and importance of walker use to reduce strain on body and to follow up with PCP if this does not improve over the course of the next few days. Patient is assessed as low complexity based on the following: History: 82 y o female with pneumonia, lives independently at baseline with who she is the main caregiver for. Examination: impairment and functional limitations as noted above Presentation: stable Decision Making: easy Plan of Care/Treatment Plan: Discharged from PT service given independent mobility DISCHARGE RECOMMENDATIONS: Home with friend supervision. Requires RW to reduce fall risk and for safe dynamic functional mobility. TREATMENT CODE/TIME: [id number], 25 min Quita Hayward, MPT [place] [facility]
[2023-09-09 11:45] VITALS: BP 119/73; PULSE 71; RESP 17; TEMP 37.1; O2SAT 94
--- NOTE | 2023-09-09 14:39 | W.PM.DS.N ---
Date of service: 09/09/23 Time of Service: 14:52 DS: Diagnosis Discharge Diagnosis (1) Sepsis: Status: Acute (2) Community acquired pneumonia: Status: Acute (3) Atrial fibrillation: Status: Acute Asessment and Plan: paroxismal (4) Acute respiratory failure with hypoxia: Status: Resolved (5) Hypertensive urgency: Status: Resolved (6) Chronic kidney disease: Status: Chronic (7) HTN (hypertension): (8) Hypomagnesemia: Status: Acute Discharge Plan Disposition Patient Disposition: Home W/Home Health Services Condition: Improving Discharge Details Reason For Visit: Sepsis PNA, acute hypoxic resp failure Admit Date/Time: 09/07/23 16:28 Admit Provider: Issa Rodriguez Attending Provider: Issa Rodriguez Primary Care Provider: Kvng Gill [facility] Course Hospital Course: Ms Hill is an 82 year old female with PMHx of HTN, hyperlipidemia, CKD III, RLS, who was admitted to [facility] hospitalist service on 09/07/23 with sepsis due to RML pneumonia accompanied by acute hypoxic respiratory failure (with the patient saturating 80% on RA and requiring 2L of O2 to saturate 88%). She was also found to be in rapid Afib with HR in 120s - this was a new diagnosis to her. She received a bolus of IVF as well as empiric levofloxacin due to her documented allergy to penicillins. With this she converted to NSR. The patient did have hypertensive urgency in setting of her acute presentation that resolved with reinitiation of her home medications. She was able to get off of oxygen by the time of arrival to the medical surgical floor and passed exercise oxymetry on 09/08/23. However, she was still not feeling well enough to go home until today. The patient was noted to have a recurrence of her Afib on telemetry and at the time was initiated on metoprolol at that time. The patient converted back to NSR and has remained rate controlled with BPs tolerating addition of metoprolol. Her echo did not demonstrate significant abnormalities. She is being discharged home with toprol XL 25 mg PO dailiy. Due to her [id number] score of 5, she qualified for having anticoagulation and is being discharged home on apixaban. She is also being discharged home with a cardiac event recorder. She will have one more dose of levofloxacin to complete on 09/11/23. She participated with PT who recommends a walker on discharge and the patient feels she would benefit from home health physical therapy because she feels weaker than her baseline. This is being ordered. The patient's magnesium was low and is being repleted on discharge. She should have her magnesium level checked in 1 week. She should follow up with her PCP In 1-2 weeks. Home Meds and New Rx's Prescriptions: New metoprolol succinate [Toprol XL] 25 mg tablet extended release 24 hr 25 mg PO HS Qty: 30 0RF apixaban 5 mg tablet 5 mg PO BID Qty: 60 0RF levofloxacin 750 mg tablet 750 mg PO ONCE Qty: 1 0RF Rx Instructions: Take on the afternoon of 09/11/23 magnesium oxide 400 mg magnesium capsule 400 mg PO DAILY Qty: 14 0RF benzonatate 200 mg capsule 200 mg PO BID-TID PRN (Reason: cough) Qty: 30 0RF Continued pramipexole 0.25 mg tablet 0.25 mg PO HS Qty: 90 3RF hydrochlorothiazide 25 mg tablet 25 mg PO DAILY Qty: 90 3RF losartan 25 mg tablet 25 mg PO DAILY Qty: 90 3RF acetaminophen [Tylenol] 325 MG tablet 650 mg PO Q6H PRN Discontinued aspirin [Mariama Chewable Aspirin] 81 MG tablet,chewable 1 tab PO DAILY Discharge Instructions Instructions: Benzonatate (By mouth), Metoprolol (By mouth), Levofloxacin (By mouth), Apixaban (By mouth), A-fib (Atrial Fibrillation) (DC), Bacterial Pneumonia (DC) Additional Instructions: Finish your antibiotics (levofloxacin) as prescribed. Return to the hospital with any fever, bleeding, chest pain, or worsening shortness of breath. Follow up with your PCP in 1-2 weeks. Bloodwork in 1 week. Care Plan Goals: Home with home health PT. Stand Alone Forms: Nursing Discharge Form Referrals: Kvng Gill DO [Primary Care Provider] - 09/17/23 9:15 am Activity:: Activity as Tolerated Equipment/Supplies:: Walker Diet:: As Tolerated Discharge Orders Discharge Orders: Discharge Order (Routine); Ordered 09/09/23 Ordered By: Jonelle Suárez Other Ambulatory Orders: Cardiac Event Recorder (Routine) Timeframe: 1 Day Facility: [facility] - Location: Respiratory Therapy Ordered By: Jonelle Suárez Magnesium (Routine) Timeframe: [id number] Location: Determined by Patient Ordered By: Jonelle Suárez DS: Summary Time Spent with Patient providing and/or coordinating discharge services: Greater than 30 minutes Status at Discharge Functional status at discharge: uses cane/walker Overall status at discharge: patient is progressing back to baseline Mental Status: mental status grossly normal Speech and Movement: speech and movement normal Mood: congruent mood Affect: normal affect Exam Narrative Exam Narrative: General: Pleasant elderly female who is A&Ox3, laying in bed, looks tired HEENT: EOMI, MMM Heart: RRR, no m/r/g Lungs: expiratory wheezing on R (improved) Abdomen: soft, nontender, nondistended Extremities: no edema BLEs Psych Mental Status: mental status grossly normal Speech and Movement: speech and movement normal Mood: congruent mood Affect: normal affect DS: Data Vitals/I&O Vitals and I&O: Vital Signs Temperature 37.1 C 09/09/23 11:45 Temperature Source Tympanic 09/09/23 11:45 Pulse 71 09/09/23 11:45 Pulse Rhythm Irregular 09/09/23 09:47 Pulse 98 H 09/07/23 16:50 Respiratory Rate 17 09/09/23 11:45 Respiratory Effort Normal 09/09/23 09:47 Respiratory Depth Normal 09/09/23 09:47 Respiratory Pattern Normal 09/09/23 09:47 Blood Pressure 119/73 09/09/23 11:45 Blood Pressure Mean 110 09/07/23 14:31 Pulse Oximetry 94 09/09/23 11:45 Oxygen Delivery Method Room Air 09/09/23 11:45 Oxygen Flow Rate 0 09/09/23 11:45 Pain Level 0 09/09/23 11:45 Comment per RN req. 09/08/23 20:48 Intake & Output 09/08/23 09/09/23 09/09/23 23:59 11:59 23:59 Intake Total 50 / 50 Output Total 700 / 700 Balance -700 / -700 50 / 50 Intake: IV 50 / 50 Output: Urine 700 / 700 Other: Urine Color Yellow Yellow Urine Appearance Clear Clear Comment independant to bathroom Voiding Methods Toilet Toilet Data Completed and Pending Completed studies during hospitalization [Text1]: CTA chest: 1. No evidence of acute pulmonary emboli. No pleural effusions. 2. Prominent area of infiltrate in the right middle lobe. 3. No intrathoracic adenopathy. Echo: Mild concentric left ventricular hypertrophy. Small left ventricular chamber size. Ejection fraction Ryan's biplane is 83%. Visually it appears 60 to 65%. There are no segmental wall motion abnormalities. Diastolic function is indeterminate given atrial fibrillation Normal right ventricular size and systolic function Left atrium is mildly enlarged. Normal right atrial size Aortic valve is sclerotic without stenosis or regurgitation Mitral annular calcification. Mild mitral regurgitation Mild tricuspid regurgitation. Estimated right ventricular systolic pressure is 22 mmHg Labs on day of discharge: Labs from last 24 hours 09/09/23 09/09/23 09/08/23 05:45 02:22 02:20 WBC 6.51 RBC 3.90 L Hgb 12.1 Hct 36.7 MCV 94 MCH 31.0 MCHC 33.0 RDW 12.3 Plt Count 168 MPV 11.7 H Immature Gran % 0.6 Neutrophils % 70.2 Lymphocytes % 17.4 Monocytes % 10.1 Eosinophils % 0.9 Basophils % 0.8 Nucleated RBC % 0.0 Absolute Neutrophils 4.57 Absolute Lymphocytes 1.13 L Absolute Monocytes 0.66 Absolute Eosinophils 0.06 Absolute Basophils 0.05 Sodium 139 Potassium 3.6 Chloride 104 Carbon Dioxide 28.9 Anion Gap 6.1 BUN 24 H Creatinine 1.1 H Est GFR (CKD-EPI 2020) 50.48 Glucose 114 H Calcium 9.0 Magnesium 1.6 L TSH 0.54 Urine Legionella Ag Pending Ur Strep pneumoniae Ag Pending Preliminary micro results at discharge 09/07/23 15:00 Blood Culture - Preliminary Blood NO GROWTH 24 HOURS 09/07/23 14:40 Blood Culture - Preliminary Blood NO GROWTH 24 HOURS PFSH All Active Problems (Updated 09/09/23 @ 15:33 by Jonelle Suárez MD) Hypomagnesemia (Acute) Discharge planning issues (Acute) DVT prophylaxis (Acute) Sepsis (Acute) Community acquired pneumonia (Acute) Atrial fibrillation (Acute) Hypoxemia (Acute) Chronic kidney disease (Chronic) SARS-CoV-2 positive (Acute ~01/2022) Paxlovid BMI 31.0-31.9,adult (Chronic) Impaired fasting glucose (Acute) Restless legs (Acute 05/03/15) Pure hypercholesterolemia (Acute 05/03/15) Osteoporosis (Acute 05/03/15) Lumbar radiculopathy (Acute 05/02/16) Medical History (Updated 09/09/23 @ 15:33 by Jonelle Suárez MD) HTN (hypertension) RLS (restless legs syndrome) HLD (hyperlipidemia) Osteoporosis Lumbar radiculopathy Surgical History Ligation of fallopian tube Lumbar/Sacral Transforaminal Injection (06/05/16) [facility] Extraction of cataract (10/28/17) L eye, Dr. liu Family History (Updated 09/28/21 @ 08:42 by Cony Escamilla RN) Mother Essential hypertension Hyperlipidemia Brother Heart disease Father Cancer Lung Social History (Updated 10/05/22 @ 10:22 by Bianca Thomas) Smoking/Tobacco Use Status: Never Smoking risk assessment performed?: Yes Alcohol Intake: never Drug use: Never Substance use type: does not use Adopted: No Caregiver/Support person: No Foster care: No Household members: spouse Housing: house Number of Children: 3 number of grandchildren: 2 Communication Needs: None Education Level: high school Do you need help understanding health information?: Rarely current occupation: retired Pets and animals: No Sexually active: No Do you think of yourself as: decline to answer Current gender identity: female What is your relationship status?: How often do you talk on the phone with friends or family?: three or more times per week How often do you get together with friends or relatives?: once per week Do you belong to any clubs or organized social groups?: no Panel score (0-1 are the most socially isolated patients): 2 What type of physical activity do you participate in: decline to answer Special fortunato needs: No Seatbelt use: always Drive intox or ride w/intox pile driver: No Working smoke detector in home: Yes Fire extinguisher in home: Yes Carbon monox detector in home: Yes Do you feel safe at home: Yes Do you feel safe in your relationship?: Yes Time Spent with Patient Time Spent with Patient: 45-69 minutes Time was spent: preparing to see the patient(eg.review tests), obtaining and/or reviewing separately otained hiistory, ordering medications,tests, procedures, referring, communicating with other health director day care center, indepentently interpreting results, counseling the patient and care coordination
[2023-09-09 14:55] VITALS: BP 116/71; PULSE 80; RESP 17; TEMP 36.7; O2SAT 95
[2023-09-09] MEDS: Normal Saline Flush 10 ML SYR IVP (15:32)
[2023-09-09] MEDS: levoFLOXacin 750 MG/150 ML BAG 100 MG IVPB (15:32)
--- NOTE | 2023-09-09 15:59 | CMDISCH_ITS ---
Date of service: 09/09/23 Time of Service: 15:59 LACE Index Scoring Tool Questions: Length of Stay (in days): 2 Was the patient admitted via the E.D.?: Yes Comorbidities: Liver or Renal Disease E.D. Visits: 0 Answers: Total Score: 10 Risk of Readmission: High Risk Care Management Discharge Plan Reason for Hospitalization: sepsis and pneumonia Discharge Plan: Kenna returned home today with new orders for HH PT. She was sent home with a new prescription for Eliquis. LOR faxed the 30 day free coupon to her pharmacy, [facility] in [place], and informed her PCP office of her need for ongoing assistance with the Eliquis patient assistance program. Her niece will drive her home via private vehicle. She will follow up with her PCP and discharge plan of care. She is happy to be going home. Patient/Family Education Needs: Review discharge instructions and limitations, discussion of self care needs including ask me three. Services Needed at Discharge: Home Health Care Services (HH PT)
--- NOTE | 2023-09-09 16:20 | PDOC.HHF2F_ITS ---
Home Health Referral Home Health Orders Clinical synopsis of why skilled professionals are needed: Ms Hill is an 82 year old female with PMHx of HTN, hyperlipidemia, CKD III, RLS, who was admitted to [facility] hospitalist service on 09/07/23 with sepsis due to RML pneumonia accompanied by acute hypoxic respiratory failure (with the patient saturating 80% on RA and requiring 2L of O2 to saturate 88%). She was also found to be in rapid Afib with HR in 120s - this was a new diagnosis to her. She received a bolus of IVF as well as empiric levofloxacin due to her documented allergy to penicillins. With this she converted to NSR. The patient did have hypertensive urgency in setting of her acute presentation that resolved with reinitiation of her home medications. She was able to get off of oxygen by the time of arrival to the medical surgical floor and passed exercise oxymetry on 09/08/23. However, she was still not feeling well enough to go home until today. The patient was noted to have a recurrence of her Afib on telemetry and at the time was initiated on metoprolol at that time. The patient converted back to NSR and has remained rate controlled with BPs tolerating addition of metoprolol. Her echo did not demonstrate significant abnormalities. She is being discharged home with toprol XL 25 mg PO dailiy. Due to her [id number] score of 5, she qualified for having anticoagulation and is being discharged home on apixaban. She is also being discharged home with a cardiac event recorder. She will have one more dose of levofloxacin to complete on 09/11/23. She participated with PT who recommends a walker on discharge and the patient feels she would benefit from home health physical therapy because she feels weaker than her baseline. This is being ordered. The patient's magnesium was low and is being repleted on discharge. She should have her magnesium level checked in 1 week. She should follow up with her PCP In 1-2 weeks. Medical diagnosis necessitation home health referral: AMbulatory dysfunction Physical Therapist: Check all that apply Increase strength & endurance for safe mobility at home: Ordered To design/establish home maintenance program: Ordered Fall reduction therapy program for patient with history of frequent falls: Ordered Home safety evaluation and teaching/gait training including stair management (if applicable): Ordered Home Bound Status Requires the aid of supportive device (check all that apply): Walker Describe why leaving home would require a considerable and taxing effort: Requires frequent rest periods Encounter Date and Reason: I certify that a FTF encounter for this patient was performed on September 09, 2023 and that such encounter was related to the primary reason the patient requires home health services. The encounter was conducted in the following manner: * By me as the certifying physician, BRAIN PICKER, PA or * By an inpatient physician, BRAIN PICKER or PA during an inpatient stay who communicated findings to me, Certification And Authentication I certify that I composed the above information based on my clinical judgment relating to this patient's medical condition and, if applicable, clinical findings communicated to me by the NPP or inpatient physician who performed the FTF encounter. Name of Provider that will be monitoring home health services: Kvng Gill
[2023-09-09 18:18] LABS: Legionella Ag Detection Urine Negative (Negative)
[2023-09-11 14:57] LABS: Streptococcus Pneumoniae Ag, U Negative (Negative)
== END 2023-09-09 17:34 | disposition home health service (06) | DRG 871 ==
LOC: ER 16:28 → MS 17:00
PROVIDERS: Internal Medicine; Admitting Provider Family Medicine; Emergency Provider Student in an Organized Health Care Education/Training Program; PCP Family Medicine; Visit Provider Family Medicine
DX: A41.9 Sepsis, unspecified organism (principal); J18.9 Pneumonia, unspecified organism; J96.01 Acute respiratory failure with hypoxia; I12.9 Hypertensive chronic kidney disease with stage 1 through stage 4 chronic kidney disease, or unspecified chronic kidney disease; N18.9 Chronic kidney disease, unspecified; G25.81 Restless legs syndrome; M81.0 Age-related osteoporosis without current pathological fracture; E78.00 Pure hypercholesterolemia, unspecified; M54.16 Radiculopathy, lumbar region; R73.01 Impaired fasting glucose; E83.42 Hypomagnesemia; I48.0 Paroxysmal atrial fibrillation
CPT/HCPCS: 00123; 36410; 36415; 71275; 80048; 80053; 82805; 84145; 85027; 87040; 87449; 87637; 93005; 93306; 93308; 94618; 96365; 96368; 97161; 99291; J1650; 81003; 81015; 83605; 83735; 83880; 84439; 84443; 84484; 85014; 85018; 85025; 85610; 85730; 87086; 87899; 93010; 94667; 94760; 99223; 99232; 99239; J0131; J1956; J3490

== ENCOUNTER 2023-10-22 10:54 | Inpatient (IN) | payer MEDICARE, SELFPAY ==
[2023-10-22] VITALS (53 sets, daily range): BP systolic 108–211; BP diastolic 38–113; PULSE 51–91; RESP 12–27; TEMP 36.3–36.5; O2SAT 93–100
--- NOTE | 2023-10-22 10:45 | RT.EKG_ITS ---
APPROVED REPORT Exam: Resting ECG Reason for Exam: diffuse twave inversions Patient Location: E HR:89 bpm ECG Measurements Heart Rate 89 AXIS [place] 162 P 40 QRSd 86 QRS 26 QT 428 T 220 QTc 499 Conclusion Sinus rhythm...normal P axis, V-rate 60- 99 Atrial premature complexes in couplets...pair SV complexes w/ short R-R Probable left atrial enlargement...P >50mS, <-0.10mV V1 Abnormal T, suspect prox. LAD occlu. or CVA...Symmetric T<-0.5mV, V2-V4
--- NOTE | 2023-10-22 11:00 | DI.RAD_ITS ---
Exam(s) XR PORTABLE CHEST AP EXAM: XR PORTABLE CHEST AP CLINICAL HISTORY: chest pain. TECHNIQUE: 2D digital imaging was performed. COMPARISON: No exams were available for comparison FINDINGS: Single AP portable view. Heart size is upper normal. The mediastinum is not widened. Lungs are clear. No infiltrates nor obvious pleural effusions. IMPRESSION: No acute pulmonary findings on this single AP portable view of the chest. DATA REPOSITORY: RADIATION DOSE DELIVERED:
--- NOTE | 2023-10-22 11:07 | W.ED.GENAD ---
HPI General Date/Time Provider Initiated Documentation: 10/22/23 11:07. HPI Narrative: Patient presents emergency department sent by cardiology for she was to have an exercise stress test this morning. She has been having substernal chest pressure on and off intermittently since September. States that she gets short of breath with that as well and was hospitalized for pneumonia in September was discharged and still was having chest pressure and shortness of breath. Went to the pipe line maintenance supervisor this morning who sent her here for she was having some changes in the electrocardiogram that were not noted back in September. In September they told her she had A-fib and was placed on apixaban. She does state that she has on and off chest pressure when she exercises or walks and sometimes in the morning but it just goes away today does not report shortness of breath or lower extremity swelling. Denies chest pain at this time Related Data Home Medications Medication Instructions Recorded Confirmed acetaminophen 325 mg tablet 650 mg PO Q6H PRN 12/20/15 10/08/23 (Tylenol) losartan 25 mg tablet 25 mg PO DAILY #90 tabs 08/02/23 10/08/23 apixaban 2.5 mg tablet 2.5 mg PO BID #180 tabs 09/17/23 10/08/23 metoprolol succinate 25 mg 25 mg PO HS #90 tabs 09/17/23 10/08/23 tablet,extended release 24 hr (Toprol XL) hydrochlorothiazide 25 mg tablet 12.5 mg PO DAILY 10/08/23 10/08/23 pramipexole 0.25 mg tablet 0.25 mg PO HS #90 tab-caps 10/15/23 Previous Rx's Medication Instructions Recorded losartan 25 mg tablet 25 mg PO DAILY #90 tabs 08/02/23 apixaban 2.5 mg tablet 2.5 mg PO BID #180 tabs 09/17/23 metoprolol succinate 25 mg 25 mg PO HS #90 tabs 09/17/23 tablet,extended release 24 hr (Toprol XL) pramipexole 0.25 mg tablet 0.25 mg PO HS #90 tab-caps 10/15/23 Allergies Allergy/AdvReac Type Severity Reaction Status Date / Time lisinopril AdvReac Unknown COUGH Verified 10/08/23 09:56 Penicillins AdvReac Unknown vomiting Verified 10/08/23 09:56 General LILLY: 3 Review of Systems Narrative: Review of Systems: Constitutional: No fevers, chills, sweats Eye: No recent visual problems ENT: No ear pain, nasal congestion, sore throat Respiratory: No shortness of breath, cough Cardiovascular: No Chest pain, palpitations, syncope Gastrointestinal: No nausea, vomiting, diarrhea Genitourinary: No hematuria Justin/Lymph: Negative for bruising tendency, swollen lymph glands Endocrine: Negative for excessive thirst, excessive hunger Musculoskeletal: No back pain, neck pain, joint pain, muscle pain, decreased range of motion Integumentary: No rash, pruritus, abrasions Neurologic: Alert & oriented X 4 Psychiatric: No anxiety, depression PFSH All Active Problems (Updated 10/22/23 @ 15:11 by Sam Agosto MD) Unstable angina (Acute) Atrial fibrillation (Acute) Chronic kidney disease (Chronic) BMI 31.0-31.9,adult (Chronic) Impaired fasting glucose (Acute) Restless legs (Acute 05/03/15) Pure hypercholesterolemia (Acute 05/03/15) Osteoporosis (Acute 05/03/15) Lumbar radiculopathy (Acute 05/02/16) Medical History HTN (hypertension) RLS (restless legs syndrome) HLD (hyperlipidemia) Osteoporosis Lumbar radiculopathy Surgical History Ligation of fallopian tube Lumbar/Sacral Transforaminal Injection (06/05/16) [facility] Extraction of cataract (10/28/17) L eye, Dr. liu Family History Mother Essential hypertension Hyperlipidemia Brother Heart disease Father Cancer Lung Social History Smoking/Tobacco Use Status: Never Second Hand Exposure: No Smoking risk assessment performed?: Yes Alcohol Intake: never Drug use: Never Substance use type: does not use Adopted: No Caregiver/Support person: No Household members: spouse Housing: house Number of Children: 3 number of grandchildren: 4 Communication Needs: None Education Level: high school Do you need help understanding health information?: Rarely current occupation: retired Pets and animals: No Sexually active: No Do you think of yourself as: straight/heterosexual Current gender identity: female What is your relationship status?: How often do you talk on the phone with friends or family?: three or more times per week How often do you get together with friends or relatives?: once per week Do you belong to any clubs or organized social groups?: no Panel score (0-1 are the most socially isolated patients): 2 What type of physical activity do you participate in: decline to answer Special fortunato needs: No Seatbelt use: always Helmet use: No (Declined to answer) Drive intox or ride w/intox set key driver: No Working smoke detector in home: Yes Fire extinguisher in home: Yes Carbon monox detector in home: Yes Do you feel safe at home: Yes Do you feel safe in your relationship?: Yes Exam Narrative Exam Narrative: Exam; vitals signs as reported above normal Constitutional; In no acute distress, afebrile General: cooperative, healthy appearing, comfortable and no acute distress HEENT: Head: normal to inspection, no palpable skull fracture and normocephalic atraumatic Eyes: : appearance normal, both eyes and all related structures EOM intact bilaterally Pupils: PERRL : conjunctiva normal Direct ophthalmoscopy: normal light reflex, normal conjunctiva, normal visual acuity Ears: Normal TM, normal external canal Nose: normal no rhinorreha Neck no JVD, supple non tender Neck: normal visual inspection, full ROM and no lymphadenopathy Chest: normal inspection of the chest Respiratory : normal respiratory effort and able to speak in complete sentences no wheezing no rales Cardio Rate: regular rate, rhythm: regular rhythm normal heart sounds S1 and S2 no murmurs, gallops, or rubs GI : normal to inspection, normal bowel sounds, soft, non tender, non distended, no organomegaly Back/Spine/ no CVA tenderness Thoracic/Lumbar Spine: no tenderness or deformities Skin no rashes or lesions Neuro: patient alert oriented x 4 and no meningeal signs, Cranial Nerves: CN's II-XI intact bilaterally, Cognition: normal cognition, Speech: speech normal, Gait: normal gait, Depp tendon reflexes normal 2+ muscle strength 5/5 bilaterally Extremities, no edema, full range of motion, normal strength Medical Decision Making MDM: Summary: Patient presents emergency department after pipe line maintenance supervisor does not like the EKG changes. Patient states that since September she has been having episodes of chest pressure which lasted few minutes and shortness of breath. She was admitted to the hospital also in September when she had COVID but was noted to be A-fib and so she was febrile tachycardic but admitted her for pneumonia and sepsis. At the time they gave her apixaban and metoprolol and got discharged but she did continue having chest pressure today went to the cardiology where they did EKG which was also repeated here which shows marked T wave inversion in the anterolateral lateral leads. [id number] ultrasound done by me shows also anterolateral hypokinesis with the troponins are negative so she probably has unstable angina. I spoke with [facility] cardiology and with the findings agree the patient will need to be transferred tomorrow for catheterization. Troponins here have been negative. The recommendation is to look with a pipe line maintenance supervisor at [facility] request to care of atorvastatin, loaded with metoprolol, start the apixaban which she only took this morning and start heparin 12 hours after the last apixaban dose which will be stopped 6 hours from now. Patient has no chest pain at this time and the troponins have been negative Data Review Analysis All the data on this patient was reviewed by me including laboratory and imaging studies as well as bedside studies performed by me Independent review of Studies Imaging Chest x-ray at this time does not show any abnormality [id number] ultrasound as described above Lab: Labs showed normal normal troponin with an elevated beta natruretic peptide Risk Stratification: Patient has a high risk with a high heart score of acute coronary syndrome and most likely unstable angina and will be admitted to the hospital and tomorrow she will be transferred to [facility] for catheterization Diagnosis: 1. Acute coronary syndrome 2.unstable angina patient i 3. Myocardial infarction 4. 5. Consultants: Spoke with Dr. Rodriguez who agrees the patient will need to be admitted Shared disposition: Patient understands and agrees to be admitted to the hospital Impression: Medical Records Medical records reviewed: Yes I reviewed the patient's medical records. Lab Data Lab results reviewed: Yes I reviewed the patient's lab results. ECG Data Attestation: I personally reviewed and interpreted this ECG (s) as follows: Interpretation: Normal sinus rhythm T wave inversion V2 V3 V4 V5 V6 as well as 1 to and aVL heart rate of 89 Core Measures AMI Core Measures Followed: Yes Quality:SDOH Health Related Social Needs: No Data to Display Critical Care Time Critical Care Time Critical Care Time: Yes Total Critical Care Time: 40 Discharge Plan Disposition Patient Disposition: Admit to [facility] Condition: Stable Discharge Details Clinical Impression: Unstable angina, Atrial fibrillation Primary Care Provider: Kvng Gill ED Provider: Sam Agosto Meds and New Rx's Prescriptions: No Action losartan 25 mg tablet 25 mg PO DAILY Qty: 90 3RF hydrochlorothiazide 25 mg tablet 12.5 mg PO DAILY apixaban 2.5 mg tablet 2.5 mg PO BID Qty: 180 3RF Rx Instructions: Fill after October 07 metoprolol succinate [Toprol XL] 25 mg tablet extended release 24 hr 25 mg PO HS Qty: 90 3RF acetaminophen [Tylenol] 325 MG tablet 650 mg PO Q6H PRN pramipexole 0.25 mg tablet 0.25 mg PO HS Qty: 90 3RF Discharge Data Discharge Physician: Sam Agosto POCUS Exam (ED) Limited Cardiac Exam DATE OF EXAM: 10/22/23 TIME OF EXAM: 13:07 PROVIDER THAT PERFORMED THE STUDY: Sam Agosto IS THIS A REPEAT EXAM DURING THIS ENCOUNTER: no REASON FOR EXAM: Chest pain and Dyspnea VISUALIZED STRUCTURES: Four Chambers, Left atrium, Left ventricle, LVOT, Right atrium, Right ventricle, Aortic valve, Mitral valve, Interventricular septum and IVC VIEW OBTAINED: Apical 4-Chamber, Parasternal long-axis, Parasternal short-axis and Subxiphoid PERTINENT FINDINGS/IMPRESSION: LV dysfunction (Normal ejection fraction with hypokinesis of the anterolateral wall) Exam complete
[2023-10-22 11:31] LABS: Abs Immature Grans 0.02 10^3/uL (0.0-0.06); Absolute Basophil Count 0.05 10^3/uL (0.0-0.2); Absolute Eosinophil Count 0.04 10^3/uL (0.0-0.7); Absolute Lymphocyte Count 1.15 10^3/uL (1.2-3.4); Absolute Monocyte Count 0.37 10^3/uL (0.1-0.8); Absolute Neutrophil Count 2.73 10^3/uL (1.2-6.7); Basophils % 1.1; Eosinophils % 0.9; HCT 41.3 % (36.0-46.0); HGB 13.1 g/dL (11.2-15.7); Immature Grans % 0.5; Lymphocytes % 26.4; MCH 30.1 pg (27.0-33.0); MCHC 31.7 % (32.0-36.0); MCV 95 fL (80-95); MPV 10.6 fL (8.0-11.0); Monocytes % 8.5; Neutrophils % 62.6; Platelet Count 150 10^3/uL (130-400); RBC 4.35 10^6/uL (3.93-5.22); RDW 12.6 % (11.7-14.6); RDW-SD 43.9 fL; WBC 4.36 10^3/uL (4.4-10.8)
[2023-10-22 11:42] LABS: INR 1.1 (0.9-1.1)
[2023-10-22 11:49] LABS: ALT 15 U/L (14-59); AST 19 U/L (15-37); Albumin 3.7 g/dL (3.4-5.0); Alkaline Phosphatase 108 U/L (46-116); Anion Gap 8.1 mmol/L (3-11); BUN 21 mg/dL (7-18); Bilirubin, Total 0.8 mg/dL (0.2-1.0); CO2 29.9 mmol/L (21.0-32.0); CREATININE 1.3 mg/dL (0.55-1.02); Calcium 9.7 mg/dL (8.5-10.1); Chloride 102 mmol/L (98-107); Estimated GFR 41.06 (mL/min/1.73m2); Glucose 96 mg/dL (74-106); Magnesium 1.8 mg/dL (1.8-2.4); Potassium 3.9 mmol/L (3.5-5.1); Sodium 140 mmol/L (136-145); Total Protein 7.5 g/dL (6.4-8.2); Troponin I < 50 ng/L (< or =60)
[2023-10-22 11:55] LABS: NT-proBNP 4174 pg/mL (<300)
[2023-10-22] MEDS: Metoprolol 25 MG TAB PO ×2 (14:18→20:04)
[2023-10-22] MEDS: Aspirin 325 MG TAB PO (14:18)
--- NOTE | 2023-10-22 14:41 | W.PM.HP.N ---
Date of service: 10/22/23 Time of Service: 14:41 Assessment and Plan Assessment and plan (1) Unstable angina: Status: Acute Assessment and plan: - As noted above patient initially presented to cardiology and this morning after having about 6 weeks of persistent chest pain following recent hospitalization -EKG this morning showed new T wave inversions and was recommended she have a nuclear stress test, however after review by cardiology was actually recommended that she be transferred for cardiac catheterization -Patient now is without chest pain, her EKG does show T wave inversions mainly in V2 through V6, but her troponin has been negative -Emergency room physician discussed with [facility] field auto appraiser to except the patient for transfer for cardiac catheterization but a bed would likely not be available until tomorrow morning -Recommended to start metoprolol every 6 hours, aspirin load, high-dose statin, and initiate heparin drip in 6 hours given that patient had taken her Eliquis earlier this morning -Will monitor on telemetry -Was also recommended by [facility] cardiology with the patient has any new EKG changes or develops chest pain that we reach back out for to change patient to emergent transfer status (2) Atrial fibrillation: Status: Acute Assessment and plan: - Hold home extended release metoprolol -Will give 25 mg p.o. Lopressor every 6 hours Qualifiers: Atrial fibrillation type: unspecified Qualified Code(s): I48.91 - Unspecified atrial fibrillation (3) HTN (hypertension): Assessment and plan: - Holding home antihypertensives at this time which includes HCTZ and losartan History of Present Illness History of Present Illness Chief Complaint: EKG changes, concern for NSTEMI versus unstable Narrative: 81-year-old female with past medical history of hypertension, A-fib on Eliquis, and recent hospitalization at [facility] for sepsis secondary to community-acquired pneumonia presents to the emergency department after being seen by cardiology earlier this morning for an exercise stress test which demonstrated T wave inversions. Since being hospitalized here at [facility] and being discharged the beginning of September patient has had ongoing chest pain. She discussed this with her primary care physician who sent her to cardiology and recommended that she have a stress test. However, this morning when EKG was done she had new T wave inversions and it was recommended that she have a nuclear stress test. However the patient was sent home upon field auto appraiser review believe it would be more beneficial for the patient to present back to the emergency department for potential transfer for cardiac catheterization. However, as of now the patient is not complaining of any chest pain, shortness of breath, headache, lightheadedness, dizziness, nausea vomiting or diarrhea. In the emergency department the patient was noted as having normal vitals normal CBC, CMP and 2 negative troponins. However, her EKG did show T wave inversions most prominent in V2 through V6 anterior lateral leads which were also consistent with emergency room POCUS findings that did show some mild anterior lateral hypokinesis. Emergency room physician reached out to [facility] and spoke with field auto appraiser George Mcgowan who agreed that patient should be transferred for cardiac catheterization for unstable angina but that would not be available until early tomorrow morning. He did recommend initiating high-dose statin, every 6 hours metoprolol, aspirin, and given that patient took her Eliquis this morning to wait 6 hours prior to initiating heparin drip. At which time emergency room physician paged hospitalist for admission for patient with unstable angina who is already been accepted to [facility] for transfer for cardiac catheterization. Review of Systems All systems reviewed & are unremarkable except as noted in HPI and below PFSH All Active Problems (Updated 10/22/23 @ 15:11 by Sam Agosto MD) Unstable angina (Acute) Atrial fibrillation (Acute) Chronic kidney disease (Chronic) BMI 31.0-31.9,adult (Chronic) Impaired fasting glucose (Acute) Restless legs (Acute 05/03/15) Pure hypercholesterolemia (Acute 05/03/15) Osteoporosis (Acute 05/03/15) Lumbar radiculopathy (Acute 05/02/16) Medical History HTN (hypertension) RLS (restless legs syndrome) HLD (hyperlipidemia) Osteoporosis Lumbar radiculopathy Surgical History Ligation of fallopian tube Lumbar/Sacral Transforaminal Injection (06/05/16) [facility] Extraction of cataract (10/28/17) L eye, Dr. liu Family History Mother Essential hypertension Hyperlipidemia Brother Heart disease Father Cancer Lung Social History Smoking/Tobacco Use Status: Never Second Hand Exposure: No Smoking risk assessment performed?: Yes Alcohol Intake: never Drug use: Never Substance use type: does not use Adopted: No Caregiver/Support person: No Household members: spouse Housing: house Number of Children: 3 number of grandchildren: 4 Communication Needs: None Education Level: high school Do you need help understanding health information?: Rarely current occupation: retired Pets and animals: No Sexually active: No Do you think of yourself as: straight/heterosexual Current gender identity: female What is your relationship status?: How often do you talk on the phone with friends or family?: three or more times per week How often do you get together with friends or relatives?: once per week Do you belong to any clubs or organized social groups?: no Panel score (0-1 are the most socially isolated patients): 2 What type of physical activity do you participate in: decline to answer Special fortunato needs: No Seatbelt use: always Helmet use: No (Declined to answer) Drive intox or ride w/intox class b driver: No Working smoke detector in home: Yes Fire extinguisher in home: Yes Carbon monox detector in home: Yes Do you feel safe at home: Yes Do you feel safe in your relationship?: Yes Meds Allergies and Home Medications Allergies Allergy/AdvReac Type Severity Reaction Status Date / Time lisinopril AdvReac Unknown COUGH Verified 10/08/23 09:56 Penicillins AdvReac Unknown vomiting Verified 10/08/23 09:56 Home Medications Medication Instructions Recorded Confirmed Type acetaminophen 325 mg tablet 650 mg PO Q6H PRN 12/20/15 10/22/23 History (Tylenol) losartan 25 mg tablet 25 mg PO DAILY #90 tabs 08/02/23 10/22/23 Rx apixaban 2.5 mg tablet 2.5 mg PO BID #180 tabs 09/17/23 10/22/23 Rx metoprolol succinate 25 mg 25 mg PO HS #90 tabs 09/17/23 10/22/23 Rx tablet,extended release 24 hr (Toprol XL) hydrochlorothiazide 25 mg tablet 12.5 mg PO DAILY 10/08/23 10/08/23 History pramipexole 0.25 mg tablet 0.25 mg PO HS #90 tab-caps 10/15/23 10/22/23 Rx Exam Narrative Exam Narrative: Well-appearing older female laying in bed in no acute distress, ANO x 4, heart regular rate rhythm, lungs clear to auscultation bilaterally, abdomen soft, nontender, nondistended Results Labs 10/23/23 06:09 10/23/23 06:09 Labs: Laboratory Results - last 24 hr 10/22/23 11:25 WBC 4.36 L RBC 4.35 Hgb 13.1 Hct 41.3 MCV 95 MCH 30.1 MCHC 31.7 L RDW 12.6 Plt Count 150 MPV 10.6 Immature Gran % 0.5 Neutrophils % 62.6 Lymphocytes % 26.4 Monocytes % 8.5 Eosinophils % 0.9 Basophils % 1.1 Nucleated RBC % 0.0 Absolute Neutrophils 2.73 Absolute Lymphocytes 1.15 L Absolute Monocytes 0.37 Absolute Eosinophils 0.04 Absolute Basophils 0.05 PT 11.0 INR 1.1 Sodium 140 Potassium 3.9 Chloride 102 Carbon Dioxide 29.9 Anion Gap 8.1 BUN 21 H Creatinine 1.3 H Est GFR (CKD-EPI 2020) 41.06 Glucose 96 Calcium 9.7 Magnesium 1.8 Total Bilirubin 0.8 AST 19 ALT 15 Alkaline Phosphatase 108 Troponin I < 50 NT-Pro-B Natriuret Pep 4174 H Total Protein 7.5 Albumin 3.7 Last Vital Signs Pulse 74 10/22/23 14:16 Resp 25 H 10/22/23 14:20 BP 157/88 H 10/22/23 14:16 Pulse Ox 96 10/22/23 14:20 Time Spent Time spent with Patient: >75 minutes Time was spent: preparing to see the patient(eg.review tests), obtaining and/or reviewing separately otained hiistory, ordering medications,tests, procedures, referring, communicating with other health pediatric critical care nurse, indepentently interpreting results, counseling the patient and care coordination
[2023-10-22 15:03] LABS: Troponin I < 50 ng/L (< or =60)
[2023-10-22 19:43] LABS: PTT Activated 27.2 sec (23.6-32.8)
[2023-10-22] MEDS: Normal Saline Flush 10 ML SYR IVP ×2 (20:05→20:27)
[2023-10-22] MEDS: Heparin in 0.45% NaCl 25,000 UNIT/250 ML BAG 9.5 UNIT IV (20:33)
[2023-10-22] MEDS: Pramipexole 0.25 MG TAB PO (21:38)
[2023-10-23] VITALS (7 sets, daily range): BP systolic 101–132; BP diastolic 51–78; PULSE 56–67; RESP 16–19; TEMP 35.7–36.3; O2SAT 94–98
[2023-10-23] MEDS: Metoprolol 25 MG TAB PO ×2 (02:14→20:13)
[2023-10-23 02:50] LABS: PTT Activated 52.2 sec (23.6-32.8)
[2023-10-23 06:47] LABS: HCT 36.7 % (36.0-46.0); HGB 11.9 g/dL (11.2-15.7); MCH 30.7 pg (27.0-33.0); MCHC 32.4 % (32.0-36.0); MCV 95 fL (80-95); MPV 11.7 fL (8.0-11.0); Platelet Count 124 10^3/uL (130-400); RBC 3.88 10^6/uL (3.93-5.22); RDW 12.6 % (11.7-14.6); RDW-SD 43.8 fL; WBC 4.14 10^3/uL (4.4-10.8)
[2023-10-23 06:54] LABS: Anion Gap 6.3 mmol/L (3-11); BUN 23 mg/dL (7-18); CO2 27.7 mmol/L (21.0-32.0); CREATININE 1.1 mg/dL (0.55-1.02); Calcium 8.9 mg/dL (8.5-10.1); Chloride 104 mmol/L (98-107); Estimated GFR 50.17 (mL/min/1.73m2); Glucose 67 mg/dL (74-106); Magnesium 1.8 mg/dL (1.8-2.4); Potassium 3.8 mmol/L (3.5-5.1); Sodium 138 mmol/L (136-145)
[2023-10-23 09:03] LABS: PTT Activated 68.5 sec (23.6-32.8)
--- NOTE | 2023-10-23 10:09 | PDOC.CMIN ---
Date of service: 10/23/23 Time of Service: 10:09 Care Management Initial Assmt Initial Assessment REASON FOR HOSPITALIZATION:: atrial fibrillation PREVIOUS FUNCTIONAL STATUS/SOCIAL/FAMILY SUPPORTS:: Kenna lives in a single family home in [place], [place] with her Stanislav. They have 3 children who all live out of state. They also have 4 grandchildren and 3 great grandchildren. 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 She is independent at baseline and does not receive any community services. CURRENT FUNCTIONAL STATUS:: Leticia was sitting up in bed when CM met with her. She was pleasant and friendly and engaged easily with CM, known to her from previous hospitalizations. Leticia has been accepted in transfer to [facility] for a cardiac catheterization. She is NPO and informed CM that she is hungry. Apparently she was NPO yesterday as well. ADVANCE DIRECTIVES:: ON file. Stanislav MENDEZ Has patient been provided with info about the portal/API?: Yes Did the patient sign up for the portal?: No CODE STATUS:: DNR/DNI INSURANCE COVERAGE / FINANCIAL ISSUES:: Medicare [employer] supplement CURRENT HOME/COMMUNITY SERVICES/EQUIPMENT:: has a walker and uses it as needed. PRIMARY CARE PHYSICIAN:: Kvng Gill POTENTIAL DISCHARGE NEEDS:: follow up with PCP and cardiology PATIENT/FAMILY EDUCATION NEEDS:: Review of discharge instructions, activity, limitations, follow up plan, discuss Ask Me Three TRANSPORTATION:: via private vehicle with family PLAN:: Kenna is waiting to transfer to [facility] for a cardiac catheterization. She has been accepted by the cardiology service but no bed has been available. CM will follow and support Kenna. Transportation will be via EMS coordinated by nursing supervisor scrap preparation. PFSH All Active Problems (Updated 10/22/23 @ 15:11 by Sam Agosto MD) Unstable angina (Acute) Atrial fibrillation (Acute) Chronic kidney disease (Chronic) BMI 31.0-31.9,adult (Chronic) Impaired fasting glucose (Acute) Restless legs (Acute 05/03/15) Pure hypercholesterolemia (Acute 05/03/15) Osteoporosis (Acute 05/03/15) Lumbar radiculopathy (Acute 05/02/16) Medical History HTN (hypertension) RLS (restless legs syndrome) HLD (hyperlipidemia) Osteoporosis Lumbar radiculopathy Surgical History Ligation of fallopian tube Lumbar/Sacral Transforaminal Injection (06/05/16) [facility] Extraction of cataract (10/28/17) L eye, Dr. liu Family History Mother Essential hypertension Hyperlipidemia Brother Heart disease Father Cancer Lung Social History Smoking/Tobacco Use Status: Never Second Hand Exposure: No Smoking risk assessment performed?: Yes Alcohol Intake: never Drug use: Never Substance use type: does not use Adopted: No Caregiver/Support person: No Household members: spouse Housing: house Number of Children: 3 number of grandchildren: 4 Communication Needs: None Education Level: high school Do you need help understanding health information?: Rarely current occupation: retired Pets and animals: No Sexually active: No Do you think of yourself as: straight/heterosexual Current gender identity: female What is your relationship status?: How often do you talk on the phone with friends or family?: three or more times per week How often do you get together with friends or relatives?: once per week Do you belong to any clubs or organized social groups?: no Panel score (0-1 are the most socially isolated patients): 2 What type of physical activity do you participate in: decline to answer Special fortunato needs: No Seatbelt use: always Helmet use: No (Declined to answer) Drive intox or ride w/intox regional company hazmat tanker driver: No Working smoke detector in home: Yes Fire extinguisher in home: Yes Carbon monox detector in home: Yes Do you feel safe at home: Yes Do you feel safe in your relationship?: Yes SDOH(Care Management) Screening Will the Patient Participate in the Screening?: Yes Do you worry about having a steady place to live?: no Problems where you live: no known problems In the past 12 months, have you had to go without electric, gas, oil or water in your home?: no Have you or anyone in your house had to go without enough food to eat?: no Has lack of transportation kept you from medical appointments or from doing things needed for daily living?: no Has anyone in your support network made you feel unsafe for any reason?: no
--- NOTE | 2023-10-23 11:31 | W.PM.DS.N ---
Date of service: 10/24/23 Time of Service: 12:59 DS: Diagnosis Discharge Diagnosis (1) Unstable angina: Status: Acute Asessment and Plan: As noted above patient initially presented to cardiology and this morning after having about 6 weeks of persistent chest pain following recent hospitalization -EKG this morning showed new T wave inversions and was recommended she have a nuclear stress test, however after review by cardiology was actually recommended that she be transferred for cardiac catheterization -Patient now is without chest pain, her EKG does show T wave inversions mainly in V2 through V6, but her troponin has been negative -Emergency room physician discussed with [facility] zinc plating machine operator to except the patient for transfer for cardiac catheterization -Recommended to start metoprolol every 6 hours, aspirin load, high-dose statin, and initiate heparin drip in 6 hours given that patient had taken her Eliquis earlier this morning -no changes on telemetry during stay at [facility] (2) Atrial fibrillation: Status: Acute Asessment and Plan: - Held home extended release metoprolol -Will give 25 mg p.o. Lopressor every 6 hours (3) HTN (hypertension): Asessment and Plan: - Holding home antihypertensives at this time which includes HCTZ and losartan Discharge Plan Disposition Patient Disposition: Transfer-Acute Inpatient Care Specific Acute In Facility: [facility] Condition: Good Discharge Details Reason For Visit: Unstable angina Admit Date/Time: 10/22/23 14:40 Admit Provider: Issa Rodriguez Attending Provider: Issa Rodriguez Primary Care Provider: [facility] Course Hospital Course: Patient presented to ED after being instructed to do so by Cardiology after outpaient exerrcise stress test showed new t-wave inversions in leads V2-6 which was also seen in ED. Trop was negative and patient was without chest pain. ED consulted [facility] [place] who recommended ASA, Q6 lopressor, and initiating heparn drip, and accepted the patient for transfer for cardiac cathaterization once a bed was available. Home Meds and New Rx's Prescriptions: No Action losartan 25 mg tablet 25 mg PO DAILY Qty: 90 3RF hydrochlorothiazide 25 mg tablet 12.5 mg PO DAILY apixaban 2.5 mg tablet 2.5 mg PO BID Qty: 180 3RF Rx Instructions: Fill after October 07 metoprolol succinate [Toprol XL] 25 mg tablet extended release 24 hr 25 mg PO HS Qty: 90 3RF acetaminophen [Tylenol] 325 MG tablet 650 mg PO Q6H PRN pramipexole 0.25 mg tablet 0.25 mg PO HS Qty: 90 3RF Discharge Instructions Activity:: Activity as Tolerated Equipment/Supplies:: No Equipment Needed Diet:: As Tolerated Discharge Orders Discharge Orders: Discharge Order (Routine); Ordered 10/24/23 Ordered By: Issa Rodriguez DS: Summary Time Spent with Patient providing and/or coordinating discharge services: Greater than 30 minutes Status at Discharge Functional status at discharge: independent ambulation Overall status at discharge: patient is back to baseline Mental Status: mental status grossly normal Speech and Movement: speech and movement normal Mood: congruent mood Affect: normal affect Quality:SDOH Health Related Social Needs: No Data to Display Exam Narrative Exam Narrative: Well-appearing older female laying in bed in no acute distress, ANO x 4, heart regular rate rhythm, lungs clear to auscultation bilaterally, abdomen soft, nontender, nondistended Psych Mental Status: mental status grossly normal Speech and Movement: speech and movement normal Mood: congruent mood Affect: normal affect DS: Data Vitals/I&O Vitals and I&O: Vital Signs Temperature 97.3 F L 10/23/23 08:31 Temperature Source Tympanic 10/23/23 08:31 Pulse 60 10/23/23 08:31 Pulse Rhythm Regular 10/22/23 22:51 Pulse 56 L 10/22/23 15:32 Respiratory Rate 19 10/23/23 03:29 Respiratory Effort Normal, Non-Labored 10/22/23 22:51 Respiratory Depth Normal 10/22/23 22:51 Respiratory Pattern Normal 10/22/23 22:51 Blood Pressure 132/78 10/23/23 08:31 Blood Pressure Mean 64 10/22/23 15:32 Blood Pressure Position Sitting 10/22/23 10:58 Pulse Oximetry 97 10/23/23 08:31 Oxygen Delivery Method Room Air 10/23/23 08:31 Oxygen Flow Rate 0 10/23/23 08:31 Pain Level 0 10/23/23 08:31 Intake & Output 10/22/23 10/23/23 10/23/23 17:59 05:59 17:59 Output Total 300 / 300 200 / 500 Balance -300 / -300 -200 / -500 Weight 165 lb Output: Urine 300 / 300 200 / 500 Other: Urine Color Yellow Yellow Urine Appearance Clear Clear Urine Odor None Voiding Methods Toilet Toilet Data Completed and Pending Labs on day of discharge: Labs from last 24 hours 10/23/23 10/23/23 10/23/23 08:39 06:09 05:35 WBC 4.14 L RBC 3.88 L Hgb 11.9 Hct 36.7 MCV 95 MCH 30.7 MCHC 32.4 RDW 12.6 Plt Count 124 L MPV 11.7 H Immature Gran % Neutrophils % Lymphocytes % Monocytes % Eosinophils % Basophils % Nucleated RBC % Absolute Neutrophils Absolute Lymphocytes Absolute Monocytes Absolute Eosinophils Absolute Basophils PT INR APTT 68.5 H Cancelled Sodium 138 Potassium 3.8 Chloride 104 Carbon Dioxide 27.7 Anion Gap 6.3 BUN 23 H Creatinine 1.1 H Est GFR (CKD-EPI 2020) 50.17 Glucose 67 L Calcium 8.9 Magnesium 1.8 Total Bilirubin AST ALT Alkaline Phosphatase Troponin I NT-Pro-B Natriuret Pep Total Protein Albumin 10/23/23 10/22/23 10/22/23 02:29 19:22 14:30 WBC RBC Hgb Hct MCV MCH MCHC RDW Plt Count MPV Immature Gran % Neutrophils % Lymphocytes % Monocytes % Eosinophils % Basophils % Nucleated RBC % Absolute Neutrophils Absolute Lymphocytes Absolute Monocytes Absolute Eosinophils Absolute Basophils PT INR APTT 52.2 H 27.2 Sodium Potassium Chloride Carbon Dioxide Anion Gap BUN Creatinine Est GFR (CKD-EPI 2020) Glucose Calcium Magnesium Total Bilirubin AST ALT Alkaline Phosphatase Troponin I < 50 NT-Pro-B Natriuret Pep Total Protein Albumin 10/22/23 11:25 WBC 4.36 L RBC 4.35 Hgb 13.1 Hct 41.3 MCV 95 MCH 30.1 MCHC 31.7 L RDW 12.6 Plt Count 150 MPV 10.6 Immature Gran % 0.5 Neutrophils % 62.6 Lymphocytes % 26.4 Monocytes % 8.5 Eosinophils % 0.9 Basophils % 1.1 Nucleated RBC % 0.0 Absolute Neutrophils 2.73 Absolute Lymphocytes 1.15 L Absolute Monocytes 0.37 Absolute Eosinophils 0.04 Absolute Basophils 0.05 PT 11.0 INR 1.1 APTT Sodium 140 Potassium 3.9 Chloride 102 Carbon Dioxide 29.9 Anion Gap 8.1 BUN 21 H Creatinine 1.3 H Est GFR (CKD-EPI 2021) 41.06 Glucose 96 Calcium 9.7 Magnesium 1.8 Total Bilirubin 0.8 AST 19 ALT 15 Alkaline Phosphatase 108 Troponin I < 50 NT-Pro-B Natriuret Pep 4174 H Total Protein 7.5 Albumin 3.7 PFSH All Active Problems (Updated 10/22/23 @ 15:11 by Sma Agosto MD) Unstable angina (Acute) Atrial fibrillation (Acute) Chronic kidney disease (Chronic) BMI 31.0-31.9,adult (Chronic) Impaired fasting glucose (Acute) Restless legs (Acute 05/03/15) Pure hypercholesterolemia (Acute 05/03/15) Osteoporosis (Acute 05/03/15) Lumbar radiculopathy (Acute 05/02/16) Medical History HTN (hypertension) RLS (restless legs syndrome) HLD (hyperlipidemia) Osteoporosis Lumbar radiculopathy Surgical History Ligation of fallopian tube Lumbar/Sacral Transforaminal Injection (06/05/16) [facility] Extraction of cataract (10/28/17) L eye, Dr. liu Family History Mother Essential hypertension Hyperlipidemia Brother Heart disease Father Cancer Lung Social History Smoking/Tobacco Use Status: Never Second Hand Exposure: No Smoking risk assessment performed?: Yes Alcohol Intake: never Drug use: Never Substance use type: does not use Adopted: No Caregiver/Support person: No Household members: spouse Housing: house Number of Children: 3 number of grandchildren: 4 Communication Needs: None Education Level: high school Do you need help understanding health information?: Rarely current occupation: retired Pets and animals: No Sexually active: No Do you think of yourself as: straight/heterosexual Current gender identity: female What is your relationship status?: How often do you talk on the phone with friends or family?: three or more times per week How often do you get together with friends or relatives?: once per week Do you belong to any clubs or organized social groups?: no Panel score (0-1 are the most socially isolated patients): 2 What type of physical activity do you participate in: decline to answer Special fortunato needs: No Seatbelt use: always Helmet use: No (Declined to answer) Drive intox or ride w/intox 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 Time Spent with Patient Time Spent with Patient: <45 minutes Time was spent: preparing to see the patient(eg.review tests), obtaining and/or reviewing separately otained hiistory, ordering medications,tests, procedures, referring, communicating with other health health care marketing specialist, indepentently interpreting results, counseling the patient and care coordination
--- NOTE | 2023-10-23 16:49 | CHAPLAIN ---
Kenna was resting in bed when I visited. I explained my role and offered support. Kenna's Stanislav and a friend were with her so I didn't stay long. Kenna is being transferred [place] [facility] I returned this afternoon to give Kenna a prayer shawl. She was sleeping so I left the shawl on her bed.
--- NOTE | 2023-10-23 17:48 | PGE_ITS ---
Date of Service Date of service: 10/23/23 Time of Service: 17:48 Assessment and Plan Assessment and plan (1) Unstable angina: Status: Acute Assessment and plan: - As noted above patient initially presented to cardiology and this morning after having about 6 weeks of persistent chest pain following recent hospitalization -EKG this morning showed new T wave inversions and was recommended she have a nuclear stress test, however after review by cardiology was actually recommended that she be transferred for cardiac catheterization -Patient now is without chest pain, her EKG does show T wave inversions mainly in V2 through V6, but her troponin has been negative -Emergency room physician discussed with [facility] thermal engineer to except the patient for transfer for cardiac catheterization but a bed would likely not be available until tomorrow morning -Recommended to start metoprolol every 6 hours, aspirin load, high-dose statin, and initiate heparin drip in 6 hours given that patient had taken her Eliquis earlier this morning -Will monitor on telemetry -Was also recommended by [facility] cardiology with the patient has any new EKG changes or develops chest pain that we reach back out for to change patient to emergent transfer status (2) Atrial fibrillation: Status: Acute Assessment and plan: - Hold home extended release metoprolol -Will give 25 mg p.o. Lopressor every 6 hours Qualifiers: Atrial fibrillation type: unspecified Qualified Code(s): I48.91 - Unspecified atrial fibrillation (3) HTN (hypertension): Assessment and plan: - Holding home antihypertensives at this time which includes HCTZ and losartan Subjective Subjective Interval history since last seen: Patient states that she is doing well today. She understands that her transfer has been delayed and that she will likely go to [facility] [place] for cardiac catheterization tomorrow. Otherwise she has no other complaints concerns. Exam Narrative Exam Narrative: Well-appearing older female laying in bed in no acute distress, ANO x 4, heart regular rate rhythm, lungs clear to auscultation bilaterally, abdomen soft, nontender, nondistended Objective Last Vital Signs Temp 96.4 F L 10/23/23 15:33 Pulse 62 10/23/23 15:33 Resp 18 10/23/23 15:33 BP 102/66 10/23/23 15:33 Pulse Ox 96 10/23/23 15:33 Laboratory Results - last 24 hr 10/22/23 10/23/23 10/23/23 19:22 02:29 05:35 WBC RBC Hgb Hct MCV MCH MCHC RDW Plt Count MPV APTT 27.2 52.2 H Cancelled Sodium Potassium Chloride Carbon Dioxide Anion Gap BUN Creatinine Est GFR (CKD-EPI 2020) Glucose Calcium Magnesium 10/23/23 10/23/23 06:09 08:39 WBC 4.14 L RBC 3.88 L Hgb 11.9 Hct 36.7 MCV 95 MCH 30.7 MCHC 32.4 RDW 12.6 Plt Count 124 L MPV 11.7 H APTT 68.5 H Sodium 138 Potassium 3.8 Chloride 104 Carbon Dioxide 27.7 Anion Gap 6.3 BUN 23 H Creatinine 1.1 H Est GFR (CKD-EPI 2020) 50.17 Glucose 67 L Calcium 8.9 Magnesium 1.8 Time Spent with Patient Time Spent with Patient: >50 minutes Time was spent: preparing to see the patient(eg.review tests), obtaining and/or reviewing separately otained hiistory, ordering medications,tests, procedures, referring, communicating with other health family day care worker, indepentently interpreting results, counseling the patient and care coordination
[2023-10-23] MEDS: Normal Saline Flush 10 ML SYR IVP (20:17)
[2023-10-23] MEDS: nitroGLYcerin 0.4 MG TAB SL (21:50)
[2023-10-23] MEDS: Pramipexole 0.25 MG TAB PO (22:11)
[2023-10-23] MEDS: Heparin in 0.45% NaCl 25,000 UNIT/250 ML BAG 9.5 UNIT IV (23:09)
[2023-10-24 03:31] VITALS: BP 106/64; PULSE 57; RESP 16; TEMP 36.2; O2SAT 95
[2023-10-24 06:45] LABS: HGB 12.3 g/dL (11.2-15.7); MCH 30.5 pg (27.0-33.0); MCHC 32.4 % (32.0-36.0); MCV 94 fL (80-95); MPV 12.5 fL (8.0-11.0); Platelet Count 126 10^3/uL (130-400); RBC 4.03 10^6/uL (3.93-5.22); RDW 12.4 % (11.7-14.6); RDW-SD 43.2 fL; WBC 4.05 10^3/uL (4.4-10.8)
[2023-10-24 06:54] LABS: PTT Activated 51.8 sec (23.6-32.8)
[2023-10-24 07:56] VITALS: BP 122/69; PULSE 63; RESP 16; TEMP 36; O2SAT 95
[2023-10-24] MEDS: Metoprolol 25 MG TAB PO (07:58)
[2023-10-24] MEDS: Normal Saline Flush 10 ML SYR IVP (07:58)
--- NOTE | 2023-10-24 08:46 | PDOC.CMPRO ---
Date of service: 10/24/23 Time of Service: 08:46 Care Management Progress Note Progress Note Text Progress Note Text: S/O: A:Leticia is an 83 year old woman admitted on 10/22/23 with unstable angina. P: Krish is awaiting transfer to [facility] [place] for a cardiac catheterization
[2023-10-24 11:08] VITALS: BP 130/81; PULSE 56; RESP 16; TEMP 36.8; O2SAT 95
[2023-10-24 12:16] LABS: PTT Activated 65.9 sec (23.6-32.8)
--- NOTE | 2023-10-24 15:01 | CHAPLAIN ---
Kenna was transferred to [facility] today for a heart catherization. She is expecting her son from [place] to arrive tomorrow, so she would like to get home as soon as possible. She hasn't seen her son in a couple of years. Kenna said she's never been a patient at [facility] before so isn't sure what to expect, but she's relieved to be getting on the way there after a day's wait, and have the procedure and move on from there.
--- NOTE | 2023-10-24 17:15 | CMDISCH_ITS ---
Date of service: 10/24/23 Time of Service: 17:15 LACE Index Scoring Tool Questions: Length of Stay (in days): 2 Was the patient admitted via the E.D.?: Yes Comorbidities: Liver or Renal Disease E.D. Visits: 2 Answers: Total Score: 12 Risk of Readmission: High Risk Care Management Discharge Plan Reason for Hospitalization: atrial fibrillation Discharge Plan: Kenna will be discharged to [facility] today for a cardiac catheterization. She will transport via EMS coordinated by nursing supervision. Services Needed at Discharge: Transportation SDOH Health Related Social Needs: No Data to Display
== END 2023-10-24 13:57 | disposition short-term general hospital (02) | DRG 311 ==
LOC: ER 15:39 → MS 15:47
PROVIDERS: Family Medicine; Admitting Provider Family Medicine; Emergency Provider Emergency Medicine Emergency Medical Services; PCP Family Medicine; Visit Provider Family Medicine
DX: I20.0 Unstable angina (principal); I48.91 Unspecified atrial fibrillation; G25.81 Restless legs syndrome; N18.9 Chronic kidney disease, unspecified; I12.9 Hypertensive chronic kidney disease with stage 1 through stage 4 chronic kidney disease, or unspecified chronic kidney disease; R73.01 Impaired fasting glucose; E78.00 Pure hypercholesterolemia, unspecified; M81.0 Age-related osteoporosis without current pathological fracture; M54.16 Radiculopathy, lumbar region; Z79.01 Long term (current) use of anticoagulants
CPT/HCPCS: 00123; 36415; 80048; 80053; 85027; 93005; 93308; 99291; 71045; 83735; 83880; 84484; 85025; 85610; 85730; 93010; 99223; 99233; 99239; J1644

== ENCOUNTER 2023-11-01 16:41 | Emergency (ER) | payer MEDICARE, SELFPAY ==
[2023-11-01] VITALS (50 sets, daily range): BP systolic 118–192; BP diastolic 46–93; PULSE 83–110; RESP 19–29; TEMP 36.8–38.6; O2SAT 97
--- NOTE | 2023-11-01 16:30 | RT.EKG_ITS ---
APPROVED REPORT Exam: Resting ECG Reason for Exam: Chest pain Patient Location: E HR:108 bpm ECG Measurements Heart Rate 108 AXIS UT 170 P 56 QRSd 80 QRS 33 QT 356 T 245 QTc 477 Conclusion Sinus tachycardia...rate> 99 Ventricular premature complex...V complex w/ short R-R interval Repol abnrm, prob ischemia, anterolateral lds...ST dep, T neg, I aVL V2-V6
--- NOTE | 2023-11-01 16:54 | W.ED.GENAD ---
HPI General Date/Time Provider Initiated Documentation: 11/01/23 16:53. HPI Narrative: 83 year-old female presents to ED today by POV/ambulating with her Son, Leif, with a chief complaint of onset of 30 minutes of chest pain this afternoon around 1430, described as squeezing- has also been tired and experiencing chills and shakes, with onset after having 2 stents placed at [facility] 8 days ago. Quality described as equates it with a prior episode of pneumonia, denies active chest pain here at ED, and endorses fatigue, no radiation to active cough, hemoptysis, syncope, near fainting, denies diaphoresis, endorses shortness of breath with the chest tightness, denies nausea/vomiting/diarrhea, denies abdominal pain. Severity is described as 5-6/10. Palliating factors include nothing specific attempted. Provoking factors include nothing specific. Patient is anticoagulated on Eliquis. Related Data Home Medications Medication Instructions Recorded Confirmed acetaminophen 325 mg tablet 650 mg PO Q6H PRN 12/20/15 11/01/23 (Tylenol) apixaban 2.5 mg tablet 2.5 mg PO BID #180 tabs 09/17/23 11/01/23 metoprolol succinate 25 mg 25 mg PO HS #90 tabs 09/17/23 11/01/23 tablet,extended release 24 hr (Toprol XL) aspirin 81 mg chewable tablet 81 mg PO DAILY 10/28/23 11/01/23 atorvastatin 80 mg tablet 80 mg PO QPM 10/28/23 11/01/23 clopidogrel 75 mg tablet 75 mg PO DAILY 10/28/23 11/01/23 nitroglycerin 0.4 mg sublingual 0.4 mg sublingual Q5M PRN 10/28/23 11/01/23 tablet pramipexole 0.25 mg tablet 0.25 mg PO HS #90 tab-caps 10/29/23 11/01/23 moxifloxacin 400 mg tablet 400 mg PO DAILY 5 days #5 tabs 11/01/23 Previous Rx's Medication Instructions Recorded apixaban 2.5 mg tablet 2.5 mg PO BID #180 tabs 09/17/23 metoprolol succinate 25 mg 25 mg PO HS #90 tabs 09/17/23 tablet,extended release 24 hr (Toprol XL) pramipexole 0.25 mg tablet 0.25 mg PO HS #90 tab-caps 10/29/23 moxifloxacin 400 mg tablet 400 mg PO DAILY 5 days #5 tabs 11/01/23 Allergies Allergy/AdvReac Type Severity Reaction Status Date / Time lisinopril AdvReac Unknown COUGH Verified 10/29/23 13:22 Penicillins AdvReac Unknown vomiting Verified 10/29/23 13:22 General Stated Complaint: Chest Pain LILLY: 3 Review of Systems All systems reviewed & are unremarkable except as noted in HPI and below Exam Narrative Exam Narrative: GENERAL APPEARANCE: Well-nourished, non-toxic, awake and alert, atraumatic, no acute distress. SKIN: Warm, pink, dry, intact, without rashes/lesions/ulcerations. HEAD: Normocephalic, atraumatic, normal hair distribution for gender/age. EYES: Pupils PERRLA, EOMs intact without nystagmus, normal conjunctiva, no exudates on lids/lashes. ENT: Nares patent, no circumoral cyanosis, no facial swelling NECK: Supple, trachea midline, painless cervical ROM. LUNGS/CHEST: Lungs CTA bilaterally- no rhonchi/rales/wheezes diffusely, non-labored respirations, normal A/P diameter, symmetrical expansion, no chest wall deformity, no tenderness to palpation HEART (CV/PV): Regular rate and rhythm without murmur, no peripheral edema, mild JVD. ABDOMEN: Soft, non-distended, no guarding, no tenderness. MSK: Normal ROM, no swelling/deformity to bilateral UEs or LEs, moving all extremities without weakness, no cyanosis, spine midline without tenderness, normal curvature. NEURO: Mental Status AAOx4 - alert to person, place, time, events No facial droop, no forehead involvement. Motor: No focal weakness - strength 5/5 in bilateral UEs and LEs, proximal and distal, symmetric. Sensory: sensation intact to light touch globally. Gait normal: patient ambulated without ataxia into ED room. PSYCH: euthymic, cooperative, pleasant, appropriate speech Course Vital Signs Vital signs: Vital Signs Temperature 36.8 C 11/01/23 16:47 Pulse 107 H 11/01/23 16:47 Respiratory Rate 20 11/01/23 16:47 Blood Pressure 192/82 H 11/01/23 16:47 Pulse Oximetry 97 11/01/23 16:47 Temperature 36.8 C 11/01/23 16:47 Temperature Source Oral 11/01/23 16:47 Pulse 107 H 11/01/23 16:47 Respiratory Rate 20 11/01/23 16:47 Blood Pressure 192/82 H 11/01/23 16:47 Blood Pressure Position Supine 11/01/23 16:47 Pulse Oximetry 97 11/01/23 16:47 Oxygen Delivery Method Room Air 11/01/23 16:47 Oxygen Flow Rate 0 11/01/23 16:47 Medical Decision Making This dictation utilizes [id number] dictation software and may contain unedited grammatical errors. 83 y/o F presents to ED today with a chief complaint of chest pain, lasting 30 minutes, onset around 1430 today. Also endorses chills/fevers, shakes. Had 2 stents placed at [facility] last , was feeling well until today after discharge. Patient denies syncope, denies active cough, denies NVD. Patients son brought her in when she was just stating she didn't feel well and wanted to sleep all day. Patients' medical history: Hypertension, hyperlipidemia, prolonged QT, unstable angina, atrial fibrillation, CKD. Family and social history: lives independently, non-smoker. Pertinent exam findings / vital signs include mild JVD, regular rate, lungs CTA, benign abdomen, mild tachycardia. Developed a low-grade fever while in ED, addressed with Tylenol. Differential / pathologies of concern include PE, ACS, Aspiration PNA, Anxiety, Costochondritis. Diagnostic studies of: -EKG x2, CBC, CMP, Trop I, BNP, Lactate, Lipase, Mg++, UA, CRP/ESR, CTA Chest PE Study, Coagulation studies, COVID flu RSV swab, procalcitonin, VBG. -Initial troponin 99, possibly due to recent stenting, CK-MB unavailable. 3hr trop reads 93, trending down. -CBC benign, no leukocytosis, mild elev of neutrophils and low lymphocytes -PT/PTT wnl -Initial lactate 2.0 - given IVF, repeat shows 0.7- unlikely sepsis. -CMP shows no significant electrolyte abnormalities -CRP elev at 2.3 -BNP elev to 4 -procalcitonin neg -lipase wnl -UA shows - patient was unable to give sample. -CTA shows no PE, possible small new infiltrates, with recent procedure she could have an element of aspiration PNA occurring. -EKGs show diffuse T-wave inversions, question ST depression diffusely, otherwise p waves present, narrow QRS, normal axis, faxed to [facility] Cardiology for consult. Non-dynamic on repeat. Interventions of: -500mL IVF with improvement of lactate from 2.0 to 0.7, PO Tylenol for chills. ED Course/Assessment/Plan: 83-year-old female presents day 8 status post PCI with 2 stent's placed at [facility] with chest pain onset around 1430 today for 30 minutes at rest, patient has also been coughing and feeling chills. Had downtrending troponins that were mildly above high normal, suspect this is residual from her PCI, mild elevation of CRP points to possible infectious etiology, new infiltrates on CTA of the chest indicated possible aspiration pneumonia without evidence for PE, her BNP is 2064 but improved from last value when she was sent to [facility], procalcitonin negative, lipase within normal limits, plan to discuss with [facility] cardiology for recommendations if they want her transferred or if they would like to follow-up outpatient and I plan to address her possible aspiration pneumonia with moxifloxacin as she is allergic to Augmentin. Spoke with Dr. Castorena of [facility] cardiology and we went over the case in detail and she feels that any etiology of this chest pain related to any in-stent thrombosis is unlikely at this time and the patient is on ideal medication regimen and has an alternative diagnosis with her cough and possible new infiltrate seen on CT of her chest that she would like the patient to call the [facility] cardiology office tomorrow morning and they will expedite follow-up and I will start empiric pneumonia treatment this evening. Findings not consistent with acute coronary syndrome or active chest pain, pulmonary embolism, sepsis, hypoxic respiratory failure. Disposition of chest pain of uncertain etiology, aspiration pneumonia. Patient verbalized understanding of the plan and return to ED criteria and engaged in shared decision making. Medical Records Medical records reviewed: Yes I reviewed the patient's medical records. Imaging Data Radiologic Study: Attestation: I personally reviewed and interpreted this imaging study as follows: Imaging: CT Scan Radiologist's impression: EXAM: CT CHEST PE CTA CLINICAL HISTORY: chest pain, tachy, 8 days post stents. TECHNIQUE: Imaging Protocol: Axial CT angiography was performed with multi-slice acquisition and multi-planar and/or 3D reconstructions. CONTRAST MATERIAL: Intravenous: Omnipaque 350 contrast volume:100 mL COMPARISON: CT CT CHEST PE CTA from 09/07/2023 FINDINGS: Tracheobronchial tree: Patent where visualized. Pulmonary parenchyma: Near complete resolution of the multifocal infiltrate, with residual or new infiltrate seen predominantly in the right upper lobe, right middle lobe and left lingula. No architectural distortion. Pulmonary Arteries: No evidence of filling defect to suggest pulmonary emboli. Mediastinum and Lizy: No dominant adenopathy or fluid collection. The esophagus is unremarkable. Visualized thyroid gland: There is an enlarged left lobe of the thyroid gland again seen. There is a 2 cm hypodense nodule in the inferior left lobe. Nonemergent thyroid ultrasound should be obtained for further evaluation. It does cause rightward deviation of the trachea. Pleura: No effusion or pneumothorax. Heart: The heart is not dilated. Coronary artery calcifications and/or stents are present. No pericardial effusion. Aorta: Thoracic aorta non-dilated. No evidence of dissection. Atherosclerosis. Upper abdomen: There is a stable hepatic cyst. Soft tissues: Unremarkable. Bones: Within normal limits for the patient's age. IMPRESSION: 1. No evidence of pulmonary embolism, thoracic aortic dissection or aneurysm. 2. Interval improvement of the multifocal pulmonary infiltrate with small residual or new infiltrates present. 3. Enlarged left lobe of the thyroid gland with a 2 cm hypodense nodule present. Nonemergent thyroid ultrasound is recommended. 4. Findings were discussed with Stephon Cline at 6:50 p.m. on 11/01/2023. Lab Data Lab results reviewed: Yes I reviewed the patient's lab results. Labs: Laboratory Tests Range/Units 11/01/23 11/01/23 11/01/23 16:55 17:30 19:22 WBC (4.4-10.8) 10^3/uL 9.50 RBC (3.93-5.22) 10^6/uL 3.96 Hgb (11.2-15.7) g/dL 12.0 Hct (36.0-46.0) % 38.1 MCV (80-95) fL 96 H MCH (27.0-33.0) pg 30.3 MCHC (32.0-36.0) % 31.5 L RDW (11.7-14.6) % 12.9 Plt Count (130-400) 10^3/uL 150 MPV (8.0-11.0) fL 11.7 H Immature Gran % 0.3 Neutrophils % 87.3 Lymphocytes % 6.1 Monocytes % 5.7 Eosinophils % 0.1 Basophils % 0.5 Nucleated RBC % (0.0-0.3) % 0.0 Absolute Neutrophils (1.2-6.7) 10^3/uL 8.29 H Absolute Lymphocytes (1.2-3.4) 10^3/uL 0.58 L Absolute Monocytes (0.1-0.8) 10^3/uL 0.54 Absolute Eosinophils (0.0-0.7) 10^3/uL 0.01 Absolute Basophils (0.0-0.2) 10^3/uL 0.05 ESR (0-30) mm/hr 18 PT (9.1-11.1) sec 11.0 INR (0.9-1.1) 1.1 APTT (23.6-32.8) sec 28.3 VBG pH (7.31-7.41) 7.35 VBG pCO2 (41-51) mmHg 51 VBG pO2 mmHg 29 VBG HCO3 (23-28) mmol/L 28 VBG Total CO2 (24-29) mmol/L 26 VBG O2 Saturation % 58 VBG Base Excess (-2-3) mmol/L 3 VBG Lactate (0.6-1.4) mmol/L 2.0 H 0.7 Sodium (136-145) mmol/L 140 Potassium (3.5-5.1) mmol/L 4.3 Chloride (98-107) mmol/L 103 Carbon Dioxide (21.0-32.0) mmol/L 27.7 Anion Gap (3-11) mmol/L 9.3 BUN (7-18) mg/dL 19 H Creatinine (0.55-1.02) mg/dL 1.2 H Est GFR (CKD-EPI 2020) (mL/min/1.73m2) 45.19 Glucose (74-106) mg/dL 112 H Calcium (8.5-10.1) mg/dL 9.5 Magnesium (1.8-2.4) mg/dL 1.9 Total Bilirubin (0.2-1.0) mg/dL 0.9 AST (15-37) U/L 23 ALT (14-59) U/L 25 Alkaline Phosphatase (46-116) U/L 100 Troponin I (< or =60) ng/L 99 H* C-Reactive Protein (0.0-0.3) mg/dL 2.31 H NT-Pro-B Natriuret Pep (<300) pg/mL 2064 H Total Protein (6.4-8.2) g/dL 7.6 Albumin (3.4-5.0) g/dL 3.7 Lipase (16-77) U/L 27 Procalcitonin ng/mL < 0.1 COVID-19 Source Nasopharynx SARS-CoV-2 (PCR) (Negative) Negative Influenza Type A (PCR) (Negative) Negative Influenza Type B (PCR) (Negative) Negative RSV (PCR) (Negative) Negative Range/Units 11/01/23 20:05 WBC (4.4-10.8) 10^3/uL RBC (3.93-5.22) 10^6/uL Hgb (11.2-15.7) g/dL Hct (36.0-46.0) % MCV (80-95) fL MCH (27.0-33.0) pg MCHC (32.0-36.0) % RDW (11.7-14.6) % Plt Count (130-400) 10^3/uL MPV (8.0-11.0) fL Immature Gran % Neutrophils % Lymphocytes % Monocytes % Eosinophils % Basophils % Nucleated RBC % (0.0-0.3) % Absolute Neutrophils (1.2-6.7) 10^3/uL Absolute Lymphocytes (1.2-3.4) 10^3/uL Absolute Monocytes (0.1-0.8) 10^3/uL Absolute Eosinophils (0.0-0.7) 10^3/uL Absolute Basophils (0.0-0.2) 10^3/uL ESR (0-30) mm/hr PT (9.1-11.1) sec INR (0.9-1.1) APTT (23.6-32.8) sec VBG pH (7.31-7.41) VBG pCO2 (41-51) mmHg VBG pO2 mmHg VBG HCO3 (23-28) mmol/L VBG Total CO2 (24-29) mmol/L VBG O2 Saturation % VBG Base Excess (-2-3) mmol/L VBG Lactate (0.6-1.4) mmol/L Sodium (136-145) mmol/L Potassium (3.5-5.1) mmol/L Chloride (98-107) mmol/L Carbon Dioxide (21.0-32.0) mmol/L Anion Gap (3-11) mmol/L BUN (7-18) mg/dL Creatinine (0.55-1.02) mg/dL Est GFR (CKD-EPI 2020) (mL/min/1.73m2) Glucose (74-106) mg/dL Calcium (8.5-10.1) mg/dL Magnesium (1.8-2.4) mg/dL Total Bilirubin (0.2-1.0) mg/dL AST (15-37) U/L ALT (14-59) U/L Alkaline Phosphatase (46-116) U/L Troponin I (< or =60) ng/L 93 H* C-Reactive Protein (0.0-0.3) mg/dL NT-Pro-B Natriuret Pep (<300) pg/mL Total Protein (6.4-8.2) g/dL Albumin (3.4-5.0) g/dL Lipase (16-77) U/L Procalcitonin ng/mL COVID-19 Source SARS-CoV-2 (PCR) (Negative) Influenza Type A (PCR) (Negative) Influenza Type B (PCR) (Negative) RSV (PCR) (Negative) Quality:SDOH Health Related Social Needs: No Data to Display PFSH All Active Problems (Updated 11/01/23 @ 21:19 by MAGALIS Atkins) Aspiration pneumonia (Acute) Chest pain of uncertain etiology (Acute) Prolonged QT interval (Acute) S/P cardiac catheterization (Acute) 10/25/2023 at [facility]- Dr. Alex Rodrigues Unstable angina (Acute) Atrial fibrillation (Acute) Chronic kidney disease (Chronic) BMI 31.0-31.9,adult (Chronic) Impaired fasting glucose (Acute) Restless legs (Acute 05/03/15) Pure hypercholesterolemia (Acute 05/03/15) Osteoporosis (Acute 05/03/15) Lumbar radiculopathy (Acute 05/02/16) Medical History HTN (hypertension) RLS (restless legs syndrome) HLD (hyperlipidemia) Osteoporosis Lumbar radiculopathy Surgical History (Updated 10/28/23 @ 12:12 by Kelin Gallegos) Ligation of fallopian tube Lumbar/Sacral Transforaminal Injection (06/05/16) [facility] Extraction of cataract (10/28/17) L eye, Dr. liu Family History Mother Essential hypertension Hyperlipidemia Brother Heart disease Father Cancer Lung Social History Smoking/Tobacco Use Status: Never Second Hand Exposure: No Smoking risk assessment performed?: Yes Alcohol Intake: never Drug use: Never Substance use type: does not use Adopted: No Caregiver/Support person: No Household members: spouse Housing: house Number of Children: 3 number of grandchildren: 4 Communication Needs: None Education Level: high school Do you need help understanding health information?: Rarely current occupation: retired Pets and animals: No Sexually active: No Do you think of yourself as: straight/heterosexual Current gender identity: female What is your relationship status?: How often do you talk on the phone with friends or family?: three or more times per week How often do you get together with friends or relatives?: once per week Do you belong to any clubs or organized social groups?: no Panel score (0-1 are the most socially isolated patients): 2 What type of physical activity do you participate in: decline to answer Special fortunato needs: No Seatbelt use: always Helmet use: No (Declined to answer) Drive intox or ride w/intox pick up and delivery driver: No Working smoke detector in home: Yes Fire extinguisher in home: Yes Carbon monox detector in home: Yes Do you feel safe at home: Yes Do you feel safe in your relationship?: Yes Discharge Plan Disposition Patient Disposition: Home Condition: Stable Discharge Details Clinical Impression: Chest pain of uncertain etiology, Aspiration pneumonia Primary Care Provider: Kvng Gill ED Provider: Cline,Stephon R Home Meds and New Rx's Prescriptions: New moxifloxacin 400 mg tablet 400 mg PO DAILY 5 Days Qty: 5 0RF Continued apixaban 2.5 mg tablet 2.5 mg PO BID Qty: 180 3RF Rx Instructions: Fill after October 07 metoprolol succinate [Toprol XL] 25 mg tablet extended release 24 hr 25 mg PO HS Qty: 90 3RF pramipexole 0.25 mg tablet 0.25 mg PO HS Qty: 90 3RF aspirin 81 mg tablet,chewable 81 mg PO DAILY atorvastatin 80 mg tablet 80 mg PO QPM clopidogrel 75 mg tablet 75 mg PO DAILY Patient Comments: Triple therapy x 1 week with ASA and Eliquis nitroglycerin 0.4 mg tablet, sublingual 0.4 mg sublingual Q5M PRN Rx Instructions: do not exceed 3 doses per episode acetaminophen [Tylenol] 325 MG tablet 650 mg PO Q6H PRN Discharge Instructions Instructions: Moxifloxacin (By mouth), Chest Pain (ED), Pneumonia (ED) Additional Instructions: You were seen in the emergency department for your chest pain of uncertain etiology, I did speak with [facility]'s cardiology team they want you to call the office tomorrow so they can expedite follow-up with you otherwise they do not believe your chest pain was related to acute cardiac ischemia. Please follow all medications that they directed you to take after your stents were placed. There was no blood clot in your lungs on CT and your labs are reassuring and indicate a possible minor infection. Your CT did show some minor infiltrates in your lungs and you may have aspiration pneumonia. We have started you on an antibiotic to cover this and [facility] [place]. Please continue this once a day antibiotic, call the cardiology office tomorrow, return to the ED for any emergent concerns of chest pain. Referrals: [facility] [Outside] Kvng Gill DO [Primary Care Provider] -
--- NOTE | 2023-11-01 17:00 | RT.EKG_ITS ---
APPROVED REPORT Exam: Resting ECG Reason for Exam: chest pain Patient Location: E HR:101 bpm ECG Measurements Heart Rate 101 AXIS AR 153 P -33 QRSd 79 QRS 31 QT 343 T 262 QTc 444 Conclusion Sinus tachycardia...rate> 99 Abnormal T, probable ischemia, widespread...T <-0.50mV, ant/lat/inf
[2023-11-01 17:07] LABS: BE (Venous) 3 mmol/L (-2-3); HCO3 (Venous) 28 mmol/L (23-28); O2 Sat (Venous) 58 %; TCO2 (Venous) 26 mmol/L (24-29); pCO2 (Venous) 51 mmHg (41-51); pH (Venous) 7.35 (7.31-7.41); pO2 (Venous) 29 mmHg
[2023-11-01 17:10] LABS: Abs Immature Grans 0.03 10^3/uL (0.0-0.06); Absolute Basophil Count 0.05 10^3/uL (0.0-0.2); Absolute Eosinophil Count 0.01 10^3/uL (0.0-0.7); Absolute Lymphocyte Count 0.58 10^3/uL (1.2-3.4); Absolute Monocyte Count 0.54 10^3/uL (0.1-0.8); Absolute Neutrophil Count 8.29 10^3/uL (1.2-6.7); Basophils % 0.5; Eosinophils % 0.1; HCT 38.1 % (36.0-46.0); Immature Grans % 0.3; Lymphocytes % 6.1; MCH 30.3 pg (27.0-33.0); MCHC 31.5 % (32.0-36.0); MCV 96 fL (80-95); MPV 11.7 fL (8.0-11.0); Monocytes % 5.7; Neutrophils % 87.3; Platelet Count 150 10^3/uL (130-400); RBC 3.96 10^6/uL (3.93-5.22); RDW 12.9 % (11.7-14.6); RDW-SD 45.9 fL
[2023-11-01 17:12] LABS: ESR 18 mm/hr (0-30)
[2023-11-01 17:25] LABS: INR 1.1 (0.9-1.1); PTT Activated 28.3 sec (23.6-32.8)
[2023-11-01] MEDS: Normal Saline 500 ML IV (17:30)
[2023-11-01 17:38] LABS: ALT 25 U/L (14-59); AST 23 U/L (15-37); Albumin 3.7 g/dL (3.4-5.0); Alkaline Phosphatase 100 U/L (46-116); Anion Gap 9.3 mmol/L (3-11); BUN 19 mg/dL (7-18); Bilirubin, Total 0.9 mg/dL (0.2-1.0); C-Reactive Protein 2.31 mg/dL (0.0-0.3); CO2 27.7 mmol/L (21.0-32.0); CREATININE 1.2 mg/dL (0.55-1.02); Calcium 9.5 mg/dL (8.5-10.1); Chloride 103 mmol/L (98-107); Estimated GFR 45.19 (mL/min/1.73m2); Glucose 112 mg/dL (74-106); Lipase 27 U/L (16-77); Magnesium 1.9 mg/dL (1.8-2.4); NT-proBNP 2064 pg/mL (<300); Potassium 4.3 mmol/L (3.5-5.1); Sodium 140 mmol/L (136-145); Total Protein 7.6 g/dL (6.4-8.2)
[2023-11-01 17:44] LABS: Troponin I 99 ng/L (< or =60)
[2023-11-01 17:45] LABS: Procalcitonin < 0.1 ng/mL
[2023-11-01] MEDS: Normal Saline - Diluent 50 ML VIAL IJ (18:07)
[2023-11-01 18:12] LABS: COVID-19 PCR Negative (Negative); Influenza A PCR Negative (Negative); Influenza B PCR Negative (Negative); RSV PCR Negative (Negative)
[2023-11-01] MEDS: Omnipaque 350 MG/ML 100 ML BTL IJ (18:12)
[2023-11-01 18:13] LABS: Source Nasopharynx
--- NOTE | 2023-11-01 18:24 | DI.CT_ITS ---
Exam(s) CT CHEST PE CTA EXAM: CT CHEST PE CTA CLINICAL HISTORY: chest pain, tachy, 8 days post stents. TECHNIQUE: Imaging Protocol: Axial CT angiography was performed with multi-slice acquisition and mu lti-planar and/or 3D reconstructions. CONTRAST MATERIAL: Intravenous: Omnipaque 350 contrast volume:100 mL COMPARISON: CT CT CHEST PE CTA from 09/07/2023 FINDINGS: Tracheobronchial tree: Patent where visualized. Pulmonary parenchyma: Near complete resolution of the multifocal infiltrate, with residual or new inf iltrate seen predominantly in the right upper lobe, right middle lobe and left lingula. No business technology architect ural distortion. Pulmonary Arteries: No evidence of filling defect to suggest pulmonary emboli. Mediastinum and Lizy: No dominant adenopathy or fluid collection. The esophagus is unremarkable. Visualized thyroid gland: There is an enlarged left lobe of the thyroid gland again seen. There is a 2 cm hypodense nodule in the inferior left lobe. Nonemergent thyroid ultrasound should be obtained for further evaluation. It does cause rightward deviation of the trachea. Pleura: No effusion or pneumothorax. Heart: The heart is not dilated. Coronary artery calcifications and/or stents are present. No perica rdial effusion. Aorta: Thoracic aorta non-dilated. No evidence of dissection. Atherosclerosis. Upper abdomen: There is a stable hepatic cyst. Soft tissues: Unremarkable. Bones: Within normal limits for the patient's age. IMPRESSION: 1. No evidence of pulmonary embolism, thoracic aortic dissection or aneurysm. 2. Interval improvement of the multifocal pulmonary infiltrate with small residual or new infiltrates present. 3. Enlarged left lobe of the thyroid gland with a 2 cm hypodense nodule present. Nonemergent thyroid ultrasound is recommended. 4. Findings were discussed with Stephon Cline at 6:50 p.m. on 11/01/2023. RADIATION DOSE DELIVERED: 410.88mGy.cm Total DLP DATA REPOSITORY: All CT scans at this facility are submitted to the National Radiology Data Registry (NRDR) Dose Index Registry (DIR) with the [employer] (ACR). RADIATION OPTIMIZATION: All CT scans at this facility use at least one of these dose optimization te chniques: automated exposure control; mA and/or kV adjustment per patient size (includes targeted exa ms where dose is matched to clinical indication); or iterative reconstruction.
[2023-11-01 19:31] LABS: Lactate 0.7 mmol/L (0.6-1.4)
[2023-11-01 20:36] LABS: Troponin I 93 ng/L (< or =60)
== END 2023-11-01 21:47 | disposition home or self-care (01) ==
PROVIDERS: Emergency Provider Physician Assistant; PCP Family Medicine
DX: R07.9 Chest pain, unspecified (principal); J69.0 Pneumonitis due to inhalation of food and vomit; Z95.5 Presence of coronary angioplasty implant and graft; E78.5 Hyperlipidemia, unspecified; N18.9 Chronic kidney disease, unspecified; I11.0 Hypertensive heart disease with heart failure; Z79.01 Long term (current) use of anticoagulants; Z79.899 Other long term (current) drug therapy; R00.0 Tachycardia, unspecified
CPT/HCPCS: 71275; 80053; 82805; 83690; 84145; 85652; 87637; 93005; 99285; 81003; 83605; 83735; 83880; 84484; 85025; 85610; 85730; 86140; 93010; J3490

== ENCOUNTER 2023-11-08 14:39 | Emergency (ER) | payer MEDICARE, SELFPAY ==
--- NOTE | 2023-11-08 14:30 | RT.EKG_ITS ---
APPROVED REPORT Exam: Resting ECG Reason for Exam: chest pain Patient Location: E HR:63 bpm ECG Measurements Heart Rate 63 AXIS [place] 169 P -68 QRSd 75 QRS 8 QT 427 T 138 QTc 438 Conclusion Sinus or ectopic atrial rhythm...P axis (-45,135) Atrial premature complex...SV complex w/ short R-R interval Probable anteroseptal infarct, acute...ST>0.15mV, T upright, V1-V2
[2023-11-08 14:49] VITALS: BP 141/67; PULSE 76; RESP 18; O2SAT 98
[2023-11-08 14:52] VITALS: RESP 19
[2023-11-08 14:54] LABS: Abs Immature Grans 0.05 10^3/uL (0.0-0.06); Absolute Basophil Count 0.07 10^3/uL (0.0-0.2); Absolute Eosinophil Count 0.08 10^3/uL (0.0-0.7); Absolute Lymphocyte Count 1.19 10^3/uL (1.2-3.4); Absolute Monocyte Count 0.42 10^3/uL (0.1-0.8); Absolute Neutrophil Count 3.43 10^3/uL (1.2-6.7); Basophils % 1.3; Eosinophils % 1.5; HGB 10.8 g/dL (11.2-15.7); Lymphocytes % 22.7; MCH 30.5 pg (27.0-33.0); MCHC 31.8 % (32.0-36.0); MCV 96 fL (80-95); MPV 10.3 fL (8.0-11.0); Neutrophils % 65.5; Platelet Count 207 10^3/uL (130-400); RBC 3.54 10^6/uL (3.93-5.22); RDW 12.7 % (11.7-14.6); RDW-SD 45.3 fL; WBC 5.24 10^3/uL (4.4-10.8)
--- NOTE | 2023-11-08 15:00 | W.ED.GENAD ---
HPI General Mode of arrival: EMS. Date/Time Provider Initiated Documentation: 11/08/23 14:42. Limitations to Documentation: no limitations. Information obtained by: patient. History of Present Illness 83 year old F presents to the emergency department with the chief complaint of chest pain, described as severe, and is localized to the chest. Patient started experiencing this hour(s) (1) and it has been constant. No relieving factors improve symptom(s), No exacerbating factors reported . Patient notes chest pain; denies shortness of breath and syncope. Patient did receive the following treatments prior to arrival, none Related Data Home Medications Medication Instructions Recorded Confirmed acetaminophen 325 mg tablet 650 mg PO Q6H PRN 12/20/15 11/08/23 (Tylenol) apixaban 2.5 mg tablet 2.5 mg PO BID #180 tabs 09/17/23 11/08/23 metoprolol succinate 25 mg 25 mg PO HS #90 tabs 09/17/23 11/01/23 tablet,extended release 24 hr (Toprol XL) atorvastatin 80 mg tablet 80 mg PO QPM 10/28/23 11/08/23 clopidogrel 75 mg tablet 75 mg PO DAILY 10/28/23 11/01/23 nitroglycerin 0.4 mg sublingual 0.4 mg sublingual Q5M PRN 10/28/23 11/08/23 tablet pramipexole 0.25 mg tablet 0.25 mg PO HS #90 tab-caps 10/29/23 11/08/23 Previous Rx's Medication Instructions Recorded apixaban 2.5 mg tablet 2.5 mg PO BID #180 tabs 09/17/23 metoprolol succinate 25 mg 25 mg PO HS #90 tabs 09/17/23 tablet,extended release 24 hr (Toprol XL) pramipexole 0.25 mg tablet 0.25 mg PO HS #90 tab-caps 10/29/23 Allergies Allergy/AdvReac Type Severity Reaction Status Date / Time lisinopril AdvReac Unknown COUGH Verified 10/29/23 13:22 Penicillins AdvReac Unknown vomiting Verified 10/29/23 13:22 General Stated Complaint: Chest Pain LILLY: 2 Review of Systems All systems reviewed & are unremarkable except as noted in HPI and below Constitutional Constitutional: Denies chills, Denies fever(s) and Denies weakness Cardiovascular Cardiovascular: Reports chest pain and Denies dyspnea Respiratory Respiratory: Denies cough and Denies dyspnea Gastrointestinal Gastrointestinal: Denies abdominal pain, Denies nausea and Denies vomiting Musculoskeletal Musculoskeletal: Denies joint swelling Neurologic Neurologic: Denies weakness Exam Const Orientation: alert [facility] Head: normal to inspection Ears: external ears normal General nose exam: external nose normal Mouth: moist mucous membranes Eyes General: appearance normal, both eyes and all related structures Neck Neck: normal visual inspection Resp Effort & Inspection: normal respiratory effort and able to speak in complete sentences Auscultation: clear to auscultation bilaterally Cardio Jugular venous pressure: no JVD Rate: regular rate Heart Sounds: no murmurs Skin General skin exam: no rashes or lesions noted Neuro General: patient alert and patient oriented x3 Extrem General: normal to inspection Psych Mental Status: mental status grossly normal Course Vital Signs Vital signs: Vital Signs Pulse 76 11/08/23 14:49 Respiratory Rate 18 11/08/23 14:49 Blood Pressure 141/67 H 11/08/23 14:49 Pulse Oximetry 98 11/08/23 14:49 Pulse 76 11/08/23 14:49 Respiratory Rate 19 11/08/23 14:52 Respiratory Effort Normal, Non-Labored 11/08/23 14:52 Respiratory Depth Normal 11/08/23 14:52 Respiratory Pattern Normal 11/08/23 14:52 Blood Pressure 141/67 H 11/08/23 14:49 Blood Pressure Position Sitting 11/08/23 14:49 Pulse Oximetry 98 11/08/23 14:49 Oxygen Delivery Method Room Air 11/08/23 14:49 Oxygen Flow Rate 0 11/08/23 14:49 Pain Level 10 11/08/23 14:49 Lab/Test Results Lab/Test Results: Laboratory Tests Range/Units 11/08/23 14:45 WBC (4.4-10.8) 10^3/uL 5.24 RBC (3.93-5.22) 10^6/uL 3.54 L Hgb (11.2-15.7) g/dL 10.8 L Hct (36.0-46.0) % 34.0 L MCV (80-95) fL 96 H MCH (27.0-33.0) pg 30.5 MCHC (32.0-36.0) % 31.8 L RDW (11.7-14.6) % 12.7 Plt Count (130-400) 10^3/uL 207 MPV (8.0-11.0) fL 10.3 Immature Gran % 1.0 Neutrophils % 65.5 Lymphocytes % 22.7 Monocytes % 8.0 Eosinophils % 1.5 Basophils % 1.3 Nucleated RBC % (0.0-0.3) % 0.0 Absolute Neutrophils (1.2-6.7) 10^3/uL 3.43 Absolute Lymphocytes (1.2-3.4) 10^3/uL 1.19 L Absolute Monocytes (0.1-0.8) 10^3/uL 0.42 Absolute Eosinophils (0.0-0.7) 10^3/uL 0.08 Absolute Basophils (0.0-0.2) 10^3/uL 0.07 Medical Decision Making 83 yo female with hx CAD s/p 2 stents placed in October to [place] [facility], who was seen on 11/01 at [facility] for chest pain and treated for pneumonia who comes in with sudden onset chest pressure while sitting at home. Denies any fevers, chills or cough or dyspnea. she is caox4 on arrival, stating she has severe chest pressure radiating to her left arm and had no relief with 3 sublingual nitro. She states she has been taking her plavix, no aspirin as she was told not to take this by cardiology per patient and also has been taking her apixiban. She has no pericardial effusion on bedside u/s but does appear to have wall motion hypokinesis of the the anterior left ventricle. EKG is concerning for stemi in the anterior leads though has no reciprocal depressions. Concern for acs vs in stent thrombosis, I called [facility] after initial exam to obtain their recs, will check ekg/troponin, cbc, cmp and unclear given she just had her stents if she should receive lytics, will discuss with cardiology. She had negative cta of her chest on 11/01 for PE and dissection so doubt these at this time and has no tearing back pain and no hypoxia or evidence of DVT. Spoke with Dr. Castorena shell press operator who reviewed case and ekgs and after discussion recommends giving tnk, already had aspirin load with ems and given she is on daily plavix doesn't recommend plavix load. She also states since patient took her morning dose of eliquis they would not want to start heparin until her night time dose of eliquis is due which patient states she takes at 7pm so heparin held at this time. Discussed risks and benefits of tnk and she has no absolute contraindications to lytics and she consents to having this and has decision making capacity. [facility] accepts and accepting provider is Dr. Doran. Pt is dnr/dni and confirms this but wishes to proceed with interventions such as catheterization and other procedures deemed necessary by cardiology xray per radiology read states right lower lobe infiltrate, no cough, no fevers and normal wbc so doubt bacterial pneumonia and has had this on prior imaging, will defer antibiotics. Differential Diagnosis Differential Diagnosis: acs, in stent thrombosis Medical Records Medical records reviewed: Yes I reviewed the patient's medical records. Imaging Data Radiologic Study: Attestation: I personally reviewed and interpreted this imaging study as follows: Imaging: X-Ray Radiologist's impression: Patient Name: Kenna Hill Unit #: [id number] Loc: ER Ordering Provider: Nam Cervantes M.D. Status: [facility] ER Primary Care Provider: Kvng Gill DO Date of Exam: 11/08/23 Sex: F Admission Date: 11/08/23 : 1940 Age: 83 Exam(s) XR PORTABLE CHEST AP EXAM: XR PORTABLE CHEST AP CLINICAL HISTORY: chest pain TECHNIQUE: 2D digital imaging was performed of the chest. One image was obtained. An AP view was obtained. COMPARISON: CR XR PORTABLE CHEST AP from 10/22/2023 FINDINGS: MEDIASTINUM: Normal. HEART: Normal. PULMONARY VASCULATURE: Normal. LUNGS: Right basilar infiltrate. PLEURAL SPACE: No pleural effusion or pneumothorax. BONE:Within normal limits for the patient's age. OTHER FINDINGS:Normal. IMPRESSION: Right basilar infiltrate. Lab Data Lab results reviewed: Yes I reviewed the patient's lab results. ECG Data Attestation: I personally reviewed and interpreted this ECG (s) as follows: Prior ECG tracings: available for review Interpretation: sinus amandeep rate of 53 st elevation in v1-v3 Quality:SDOH Health Related Social Needs: No Data to Display Critical Care Time Critical Care Time Critical Care Time: Yes Total Critical Care Time: 45 (minutes) Attestation: time spent on lab review, frequent reassessments, hemodynamic monitoring and administering lytics in a patient with stemi and potential to deteriorate at any time PFS All Active Problems (Updated 11/08/23 @ 15:43 by Nam Cervantes MD) ST elevation (STEMI) myocardial infarction (Acute) Aspiration pneumonia (Acute) Chest pain of uncertain etiology (Acute) Prolonged QT interval (Acute) S/P cardiac catheterization (Acute) 10/25/2023 at [facility]- Dr. Alex Rodrigues Unstable angina (Acute) Atrial fibrillation (Acute) Chronic kidney disease (Chronic) BMI 31.0-31.9,adult (Chronic) Impaired fasting glucose (Acute) Restless legs (Acute 05/03/15) Pure hypercholesterolemia (Acute 05/03/15) Osteoporosis (Acute 05/03/15) Lumbar radiculopathy (Acute 05/02/16) Medical History HTN (hypertension) RLS (restless legs syndrome) HLD (hyperlipidemia) Osteoporosis Lumbar radiculopathy Surgical History (Updated 10/28/23 @ 12:12 by Kelin Gallegos) Ligation of fallopian tube Lumbar/Sacral Transforaminal Injection (06/05/16) [facility] Extraction of cataract (10/28/17) L eye, Dr. liu Family History Mother Essential hypertension Hyperlipidemia Brother Heart disease Father Cancer Lung Social History Smoking/Tobacco Use Status: Never Second Hand Exposure: No Smoking risk assessment performed?: Yes Alcohol Intake: never Drug use: Never Substance use type: does not use Adopted: No Caregiver/Support person: No Household members: spouse Housing: house Number of Children: 3 number of grandchildren: 4 Communication Needs: None Education Level: high school Do you need help understanding health information?: Rarely current occupation: retired Pets and animals: No Sexually active: No Do you think of yourself as: straight/heterosexual Current gender identity: female What is your relationship status?: How often do you talk on the phone with friends or family?: three or more times per week How often do you get together with friends or relatives?: once per week Do you belong to any clubs or organized social groups?: no Panel score (0-1 are the most socially isolated patients): 2 What type of physical activity do you participate in: decline to answer Special fortunato needs: No Seatbelt use: always Helmet use: No (Declined to answer) Drive intox or ride w/intox race car driver: No Working smoke detector in home: Yes Fire extinguisher in home: Yes Carbon monox detector in home: Yes Do you feel safe at home: Yes Do you feel safe in your relationship?: Yes Discharge Plan Disposition Specific Acute Inpt Facility: [facility] Condition: Critical Discharge Details Chief Complaint: Chest Pain Clinical Impression: ST elevation (STEMI) myocardial infarction Primary Care Provider: Kvng Gill ED Provider: Nam Cervantes [place] Meds and New Rx's Prescriptions: No Action apixaban 2.5 mg tablet 2.5 mg PO BID Qty: 180 3RF Rx Instructions: Fill after October 07 metoprolol succinate [Toprol XL] 25 mg tablet extended release 24 hr 25 mg PO HS Qty: 90 3RF pramipexole 0.25 mg tablet 0.25 mg PO HS Qty: 90 3RF atorvastatin 80 mg tablet 80 mg PO QPM clopidogrel 75 mg tablet 75 mg PO DAILY Patient Comments: Triple therapy x 1 week with ASA and Eliquis nitroglycerin 0.4 mg tablet, sublingual 0.4 mg sublingual Q5M PRN Rx Instructions: do not exceed 3 doses per episode acetaminophen [Tylenol] 325 MG tablet 650 mg PO Q6H PRN POCUS Exam (ED) Limited Cardiac Exam DATE OF EXAM: 11/08/23 TIME OF EXAM: 15:08 PROVIDER THAT PERFORMED THE STUDY: Nam Cervantes IS THIS A REPEAT EXAM DURING THIS ENCOUNTER: no REASON FOR EXAM: Chest pain VISUALIZED STRUCTURES: Left ventricle and Right ventricle VIEW OBTAINED: Parasternal long-axis PERTINENT FINDINGS/IMPRESSION: LV dysfunction; No pericardial effusion Exam complete
[2023-11-08] MEDS: fentaNYL 100 MCG/2 ML VIAL 50 MCG IVP (15:04)
[2023-11-08 15:07] LABS: INR 1.1 (0.9-1.1); PTT Activated 27.8 sec (23.6-32.8); Prothrombin Time 11.3 sec (9.1-11.1)
[2023-11-08 15:10] VITALS: BP 130/65; PULSE 82; RESP 18; O2SAT 94
[2023-11-08 15:15] LABS: ALT 14 U/L (14-59); AST 17 U/L (15-37); Alkaline Phosphatase 77 U/L (46-116); Anion Gap 7.5 mmol/L (3-11); BUN 16 mg/dL (7-18); Bilirubin, Total 0.4 mg/dL (0.2-1.0); CO2 28.5 mmol/L (21.0-32.0); CREATININE 1.2 mg/dL (0.55-1.02); Calcium 8.7 mg/dL (8.5-10.1); Chloride 106 mmol/L (98-107); Estimated GFR 45.19 (mL/min/1.73m2); Glucose 123 mg/dL (74-106); Lipase 27 U/L (16-77); Magnesium 1.8 mg/dL (1.8-2.4); NT-proBNP 1404 pg/mL (<300); Sodium 142 mmol/L (136-145); Total Protein 6.6 g/dL (6.4-8.2); Troponin I < 50 ng/L (< or =60)
[2023-11-08] MEDS: Ondansetron 4 MG/2 ML VIAL IVP (15:17)
--- NOTE | 2023-11-08 15:17 | DI.RAD_ITS ---
Exam(s) XR PORTABLE CHEST AP EXAM: XR PORTABLE CHEST AP CLINICAL HISTORY: chest pain TECHNIQUE: 2D digital imaging was performed of the chest. One image was obtained. An AP view was ob tained. COMPARISON: CR XR PORTABLE CHEST AP from 10/22/2023 FINDINGS: MEDIASTINUM: Normal. HEART: Normal. PULMONARY VASCULATURE: Normal. LUNGS: Right basilar infiltrate. PLEURAL SPACE: No pleural effusion or pneumothorax. BONE:Within normal limits for the patient's age. OTHER FINDINGS:Normal. IMPRESSION: Right basilar infiltrate. DATA REPOSITORY: RADIATION DOSE DELIVERED:
[2023-11-08 15:26] LABS: Procalcitonin < 0.1 ng/mL
[2023-11-08 15:34] LABS: COVID-19 PCR Negative (Negative); Influenza A PCR Negative (Negative); Influenza B PCR Negative (Negative); RSV PCR Negative (Negative)
[2023-11-08 15:37] LABS: Source Nasopharynx
[2023-11-08] MEDS: Tenecteplase 50 MG KIT 40 MG IVP (15:38)
[2023-11-08] MEDS: nitroGLYcerin in D5W 50 MG/250 ML BTL IV (15:45)
[2023-11-08 15:54] VITALS: BP 150/67; PULSE 71; RESP 19; TEMP 36.1; O2SAT 99
== END 2023-11-08 16:05 ==
LOC: ER 14:59
PROVIDERS: Emergency Provider Emergency Medicine; PCP Family Medicine
DX: I21.3 ST elevation (STEMI) myocardial infarction of unspecified site (principal); I48.91 Unspecified atrial fibrillation; R94.31 Abnormal electrocardiogram [ECG] [EKG]; I10 Essential (primary) hypertension; E78.5 Hyperlipidemia, unspecified; Z11.52 Encounter for screening for COVID-19; Z79.01 Long term (current) use of anticoagulants; Z79.02 Long term (current) use of antithrombotics/antiplatelets; Z95.5 Presence of coronary angioplasty implant and graft
CPT/HCPCS: 80053; 83690; 84145; 87637; 93005; 93308; 96374; 99285; 71045; 83735; 83880; 84484; 85025; 85610; 85730; 93010; J2305; J2405; J3010; J3101

== ENCOUNTER 2023-11-15 02:56 | Outpatient (CLI) | payer MEDICARE, SELFPAY ==
[2023-11-15 11:19] LABS: ALT 19 U/L (14-59); AST 24 U/L (15-37); Albumin 3.3 g/dL (3.4-5.0); Alkaline Phosphatase 89 U/L (46-116); Bilirubin, Direct 0.2 mg/dL (0.0-0.2); Bilirubin, Total 0.6 mg/dL (0.2-1.0); Total Protein 7.3 g/dL (6.4-8.2)
== END 2023-11-15 02:57 | disposition home or self-care (01) ==
LOC: LBO 02:57
PROVIDERS: Internal Medicine; PCP Family Medicine; Visit Provider Family Medicine
DX: E83.42 Hypomagnesemia (principal); R74.01 Elevation of levels of liver transaminase levels
CPT/HCPCS: 36415; 80076; 83735

== ENCOUNTER 2024-03-26 13:14 | Outpatient (CLI) | payer MEDICARE, SELFPAY ==
[2024-03-26 13:22] LABS: Anion Gap 6.7 mmol/L (3-11); BUN 20 mg/dL (7-18); CO2 30.3 mmol/L (21.0-32.0); CREATININE 1.2 mg/dL (0.55-1.02); Calcium 9.3 mg/dL (8.5-10.1); Chloride 106 mmol/L (98-107); Estimated GFR 45.19 (mL/min/1.73m2); Glucose 101 mg/dL (74-106); Potassium 4.1 mmol/L (3.5-5.1); Sodium 143 mmol/L (136-145)
== END 2024-03-26 13:15 | disposition home or self-care (01) ==
LOC: LBO 13:15
PROVIDERS: PCP Family Medicine; Visit Provider Family Medicine
DX: N17.9 Acute kidney failure, unspecified (principal)
CPT/HCPCS: 36415; 80048

== ENCOUNTER 2024-07-20 16:06 | Emergency (ER) | payer MEDICARE, SELFPAY ==
[2024-07-20] VITALS (17 sets, daily range): BP systolic 150–175; BP diastolic 65–93; PULSE 63–76; RESP 15–25; TEMP 36.3; O2SAT 93–99
--- NOTE | 2024-07-20 16:15 | RT.EKG_ITS ---
APPROVED REPORT Exam: Resting ECG Reason for Exam: Sync over 45 Patient Location: E HR:77 bpm ECG Measurements Heart Rate 77 AXIS TX 173 P 31 QRSd 79 QRS -19 QT 401 T 81 QTc 455 Conclusion Sinus rhythm. 77 normal axis no stemi
--- NOTE | 2024-07-20 17:00 | ED.GENADUL_ITS ---
Discharge Plan Disposition Patient Disposition: Home Condition: Stable Discharge Details Clinical Impression: Syncope, Chronic kidney disease, Atrial fibrillation, Cardiomyopathy, ischemic, ASCVD (arteriosclerotic cardiovascular disease), Peripheral vascular disease, Acute pain of right shoulder Primary Care Provider: Kvng Gill ED Provider: Becca Ch Home Meds and New Rx's Prescriptions: No Action apixaban 2.5 mg tablet 2.5 mg PO BID Qty: 180 3RF Rx Instructions: Fill after October 07 amlodipine 5 mg tablet 5 mg PO DAILY Qty: 90 3RF pramipexole 0.25 mg tablet 0.25 mg PO HS Qty: 90 3RF atorvastatin 80 mg tablet 80 mg PO QPM clopidogrel 75 mg tablet 75 mg PO DAILY Patient Comments: Triple therapy x 1 week with ASA and Eliquis nitroglycerin 0.4 mg tablet, sublingual 0.4 mg sublingual Q5M PRN Rx Instructions: do not exceed 3 doses per episode acetaminophen [Tylenol] 325 MG tablet 650 mg PO Q6H PRN Discharge Instructions Instructions: Syncope (Fainting) (DC) Additional Instructions: You were seen in the emergency department today for evaluation after a fainting episode. In our department had a full physical examination performed, had laboratory studies that were reassuring, and had imaging that did not show any bleeding in your brain or fractures or dislocation of your shoulder. We discussed syncope with your history of cardiac disease, and at this time you are desiring of discharge to home, which is reasonable based on your workup. However, you need to follow-up with your primary care provider in the next few days to discuss this visit and any symptoms that change, worsen, or persist. You can use Tylenol for management of pain, and can always return to the emergency department if you have another episode of fainting, develop chest pain, or have any other symptoms that cause you concern. Thank you for allowing us to be part of your care. HPI General Mode of arrival: ambulatory . Date/Time Provider Initiated Documentation: 07/20/24 16:22 . Limitations to Documentation: no limitations . Information obtained by: patient . HPI Narrative: HPI: This is an 83-year-old female patient with a past medical history significant for atrial fibrillation on Eliquis, history of CAD, ischemic cardiomyopathy, CKD, and hypercholesterolemia. She is presenting for evaluation after a fall. The patient reports that she had just gotten out of the car after shopping, and was walking up the stairs when she felt a sudden sensation of tunnel vision. She had a brief loss of consciousness and fell, landing on her right shoulder. She reports that she woke up immediately afterwards, this was witnessed by family and had no evidence of seizure per bystander report. The patient states that she was able to walk after this event but has significant pain in her right shoulder. She has not noted headache, changes in vision, neck or back pain, hip pain, and has no weakness or numbness distal to her right shoulder injury. The patient reports that she has had episodes of syncope in the past, but not frequently. She reports that she is not feeling lightheaded and had no sensation of significant dizziness prior to her this event. She did not have any chest pain at any point during tonight's event. Exam: Gen: Awake and alert, in no apparent distress HEENT: Non-icteric sclera, pupils equal and reactive. Small bruise appreciated lateral to the left eye, otherwise no evidence of scalp or facial trauma. Neck: Supple, no tenderness to palpation on the midline, no step-offs Lungs: No apparent respiratory distress, normal respiratory effort. CV: Appears well perfused, strong and symmetrical distal pulses, heart with regular rate and rhythm Abdomen: Non-distended, soft, nontender MSK: Moves 4 extremities without apparent limitation in ROM. No tenderness to palpation over the T or L-spine. The patient has no tenderness or deformity to palpation of the bilateral clavicles or chest wall. Pelvis is stable to AP compression, bilateral lower extremities without evidence of external traumatic findings. The patient does have some tenderness to palpation over the distal aspect of the clavicle and humeral head, does not have limitation in range of motion of the shoulder. Distal to this right shoulder the patient has no evidence of external injury. Skin: Visualized skin without rashes, cyanosis. Neuro: Normal Gait, no obvious focal deficits or facial asymmetry. Speaks in full, clear sentences. Psych: Appropriate for situation. MDM: This is AN 83-year-old female patient presenting for evaluation of shoulder injury after syncopal episode. My differentials for her injuries include but are not limited to intracranial hemorrhage, skull fracture, fracture of the shoulder, dislocation, AC joint separation, sprain/strain, contusion. There is no evidence of my physical examination for neurovascular derangement. As the cause of her syncope I certainly considered vasovagal syncope, orthostasis, ACS, arrhythmia, metabolic and electrolyte derangements, anemia. No evidence on my physical examination for stroke, no reported history of seizure. Will obtain laboratory studies to include CBC, CMP, troponin, and will obtain CT scan of the patient's brain to evaluate for bleed as well as an x-ray of the affected right shoulder. ED Course: I independently interpreted the laboratory studies, which show no significant leukocytosis, anemia, or thrombocytopenia. The chemistry panel is without evidence of electrolyte abnormality, new kidney dysfunction, or liver injury. Troponin was low x 2 checks without delta change concerning for ischemia. CT and x-ray imaging and dependently interpreted by myself, showing no intracranial hemorrhage, skull fracture, or fracture/dislocation of the affected right shoulder. On reassessment the patient does have continued full range of motion of the shoulder with no significant tenderness to palpation. She is neurovascularly intact. The patient was given a sling for comfort and was counseled on the risk of frozen shoulder and advised to wear it for no more than a few days and always with breaks for stretching and movement. The patient is medium risk by the [place]ian syncope score, and this was shared w ith her (cardiac history, no clear vasovagal history, but EKG is without axis or interval abnormalities, troponin negative) after shared decision-making conversation, the patient is desiring of discharge to home and follow-up with her outpatient providers, which I feel is reasonable at this time. She did road test without subsequent episodes of syncope or hemodynamic instability. At this time, the patient has had a full medical evaluation and is safe for discharge to home. They are hemodynamically stable, ambulatory, and tolerating PO. They are understanding of the follow-up plan and return precautions. They left our facility without incident. Becca Ch MD Related Data Home Medications ?Medication ?Instructions ?Recorded ?Confirmed acetaminophen 325 mg tablet 650 mg PO Q6H PRN 12/20/15 07/20/24 (Tylenol) apixaban 2.5 mg tablet 2.5 mg PO BID #180 tabs 09/17/23 07/20/24 atorvastatin 80 mg tablet 80 mg PO QPM 10/28/23 07/20/24 clopidogrel 75 mg tablet 75 mg PO DAILY 10/28/23 07/20/24 nitroglycerin 0.4 mg sublingual 0.4 mg sublingual Q5M PRN 10/28/23 07/20/24 tablet pramipexole 0.25 mg tablet 0.25 mg PO HS #90 tab-caps 10/29/23 07/20/24 amlodipine 5 mg tablet 5 mg PO DAILY #90 tabs 04/13/24 07/20/24 Previous Rx's ?Medication ?Instructions ?Recorded apixaban 2.5 mg tablet 2.5 mg PO BID #180 tabs 09/17/23 pramipexole 0.25 mg tablet 0.25 mg PO HS #90 tab-caps 10/29/23 amlodipine 5 mg tablet 5 mg PO DAILY #90 tabs 04/13/24 Allergies Allergy/AdvReac Type Severity Reaction Status Date / Time lisinopril AdvReac Unknown COUGH Verified 04/13/24 09:59 Penicillins AdvReac Unknown vomiting Verified 04/13/24 09:59 General Stated Complaint: [id number] LILLY: 3 Course Vital Signs Vital signs: Vital Signs Temperature 36.3 C L 07/20/24 16:17 Pulse 76 07/20/24 16:17 Respiratory Rate 15 07/20/24 16:17 Blood Pressure 157/93 H 07/20/24 16:17 Temperature 36.3 C L 07/20/24 16:17 Pulse 76 07/20/24 16:17 Respiratory Rate 15 07/20/24 16:17 Blood Pressure 157/93 H 07/20/24 16:17 Blood Pressure Position Sitting 07/20/24 16:17 Medical Decision Making Quality:SDOH Health Related Social Needs: No Data to Display PFSH All Active Problems (Updated 07/20/24 @ 18:18 by Becca Ch MD) Acute pain of right shoulder (Acute) Syncope (Chronic) Localized cyanosis (Acute) Peripheral vascular disease (Chronic) PAF (paroxysmal atrial fibrillation) (Acute ~09/2023) ASCVD (arteriosclerotic cardiovascular disease) (Acute ~10/2022) Cardiomyopathy, ischemic (Acute ~11/2023) Prolonged QT interval (Acute) S/P cardiac catheterization (Acute) 10/25/2023 at [facility]- Dr. Alex Rodrigues and 11/08/2023 with Stents in PCI to mid LAD,ostial branch LAD and D2 distal stent edge dissection by IVUS. Unstable angina (Acute) Atrial fibrillation (Acute) Chronic kidney disease (Chronic) BMI 31.0-31.9,adult (Chronic) Impaired fasting glucose (Acute) Restless legs (Acute 05/03/15) Pure hypercholesterolemia (Acute 05/03/15) Osteoporosis (Acute 05/03/15) Lumbar radiculopathy (Acute 05/02/16) Medical History HTN (hypertension) RLS (restless legs syndrome) HLD (hyperlipidemia) Osteoporosis Lumbar radiculopathy Surgical History (Updated 11/11/23 @ 13:59 by Kelin Gallegos) Ligation of fallopian tube Lumbar/Sacral Transforaminal Injection (06/05/16) Pain Center [facility] Extraction of cataract (10/28/17) L eye, Dr. liu Family History Mother Essential hypertension Hyperlipidemia Brother Heart disease Father Cancer Lung Social History Smoking/Tobacco Use Status: Never Second Hand Exposure: No Smoking risk assessment performed?: Yes Alcohol Intake: never Drug use: Never Substance use type: does not use Adopted: No Caregiver/Support person: No Household members: spouse Housing: house Number of Children: 3 number of grandchildren: 4 Communication Needs: None Education Level: high school Do you need help understanding health information?: Rarely current occupation: retired Pets and animals: No Sexually active: No Do you think of yourself as: straight/heterosexual Current gender identity: female What is your relationship status?: How often do you talk on the phone with friends or family?: three or more times per week How often do you get together with friends or relatives?: once per week Do you belong to any clubs or organized social groups?: no Panel score (0-1 are the most socially isolated patients): 2 What type of physical activity do you participate in: decline to answer Special fortunato needs: No Seatbelt use: always Helmet use: No (Declined to answer) Drive intox or ride w/intox 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
[2024-07-20 17:18] LABS: Abs Immature Grans 0.02 10^3/uL (0.0-0.06); Absolute Basophil Count 0.06 10^3/uL (0.0-0.2); Absolute Eosinophil Count 0.05 10^3/uL (0.0-0.7); Absolute Lymphocyte Count 0.94 10^3/uL (1.2-3.4); Absolute Monocyte Count 0.36 10^3/uL (0.1-0.8); Basophils % 1.4 %; Eosinophils % 1.2 %; HCT 38.9 % (36.0-46.0); HGB 12.3 g/dL (11.2-15.7); Immature Grans % 0.5 %; Lymphocytes % 21.8 %; MCH 31.1 pg (27.0-33.0); MCHC 31.6 % (32.0-36.0); MCV 98 fL (80-95); Monocytes % 8.4 %; Neutrophils % 66.7 %; Platelet Count 147 10^3/uL (130-400); RBC 3.96 10^6/uL (3.93-5.22); RDW 12.4 % (11.7-14.6); RDW-SD 44.7 fL; WBC 4.31 10^3/uL (4.4-10.8)
--- NOTE | 2024-07-20 17:18 | DI.CT_ITS ---
Exam(s) CT HEAD WO EXAM: CT HEAD WO CLINICAL HISTORY: Fall on eliquis. TECHNIQUE: Imaging Protocol: Axial computed tomography images with coronal and sagittal reformatted images were created and reviewed COMPARISON: No exams were available for comparison FINDINGS: There are no skull fractures. There is no fluid in the visualized paranasal sinuses. There is no evidence of intracranial hemorrhage, mass effect, or shift of midline structures. There are no extra-axial fluid collections. The ventricles are not enlarged or shifted and there is no blo od within the ventricular system nor within the basal cisterns. There is relatively symmetrical periventricular hypodensity consistent with chronic small vessel dise ase. Benign midline lipomas are also noted. Vascular calcification is noted in the skull base in both internal carotid arteries as well as in bot h vertebral arteries. IMPRESSION: No acute intracranial findings on this noninfused CT scan of the brain. Chronic small-vessel white matter disease. Ventricular size normal. No evidence of hemorrhage, intr a nor extra-axial. Called by myself to ER 07/20/2024 at 5:23 p.m. RADIATION DOSE DELIVERED: 830.68mGy.cm Total DLP DATA REPOSITORY: All CT scans at this facility are submitted to the National Radiology Data Registry (NRDR) Dose Index Registry (DIR) with the [employer] ([employer]). RADIATION OPTIMIZATION: All CT scans at this facility use at least one of these dose optimization te chniques: automated exposure control; mA and/or kV adjustment per patient size (includes targeted exa ms where dose is matched to clinical indication); or iterative reconstruction.
[2024-07-20] MEDS: ACETAMINOPHEN 1,000 MG/100 ML BTL 400 MG IV (17:20)
[2024-07-20 17:22] LABS: Absolute Neutrophil Count 2.87 10^3/uL (1.2-6.7)
--- NOTE | 2024-07-20 17:31 | DI.RAD_ITS ---
Exam(s) XR SHOULDER RT COMPLETE 2+V EXAM: XR SHOULDER RT COMPLETE 2+V CLINICAL HISTORY: Fall, injury. TECHNIQUE: 2D digital imaging was performed. COMPARISON: CR XR PORTABLE CHEST AP from 11/08/2023 FINDINGS: 3 views No evidence of acute fracture or dislocation or abnormal soft tissue calcifications. Mild degenerati ve changes noted. No osseous lesions. No radiopaque foreign bodies. IMPRESSION: No acute osseous findings in the right shoulder. DATA REPOSITORY: RADIATION DOSE DELIVERED:
[2024-07-20 17:40] LABS: ALT 21 U/L (14-59); AST 24 U/L (15-37); Albumin 3.7 g/dL (3.4-5.0); Alkaline Phosphatase 107 U/L (46-116); Anion Gap 8.3 mmol/L (3-11); BUN 22 mg/dL (7-18); Bilirubin, Total 0.51 mg/dL (0.2-1.0); CO2 28.7 mmol/L (21.0-32.0); CREATININE 1.4 mg/dL (0.55-1.02); Calcium 9.5 mg/dL (8.5-10.1); Chloride 107 mmol/L (98-107); Estimated GFR 37.56 (mL/min/1.73m2); Glucose 142 mg/dL (74-106); Magnesium 1.9 mg/dL (1.8-2.4); Potassium 3.9 mmol/L (3.5-5.1); Sodium 144 mmol/L (136-145); Total Protein 7.3 g/dL (6.4-8.2); Troponin I 14 ng/L (<or=51)
[2024-07-20 18:21] LABS: Troponin I 15 ng/L (<or=51)
== END 2024-07-20 19:05 | disposition home or self-care (01) ==
PROVIDERS: Emergency Provider Emergency Medicine; PCP Family Medicine
DX: R55 Syncope and collapse (principal); I11.0 Hypertensive heart disease with heart failure; N18.9 Chronic kidney disease, unspecified; I48.91 Unspecified atrial fibrillation; E78.00 Pure hypercholesterolemia, unspecified; E78.5 Hyperlipidemia, unspecified; I25.10 Atherosclerotic heart disease of native coronary artery without angina pectoris; Z79.01 Long term (current) use of anticoagulants; Z79.02 Long term (current) use of antithrombotics/antiplatelets
CPT/HCPCS: 36415; 80053; 93005; 96365; 99285; 70450; 73030; 83735; 84484; 85025; 93010; 99284; J0131

== ENCOUNTER 2024-07-30 10:51 | Outpatient (CLI) | payer MEDICARE, SELFPAY ==
--- NOTE | 2024-07-30 10:15 | DI.RAD_ITS ---
Exam(s) XR CERVICAL SPINE COMP 4-5V EXAM: XR CERVICAL SPINE COMP 4-5V CLINICAL HISTORY: Pain, base of the cervical spine after a fall, W19.XXXA. TECHNIQUE: 2D digital imaging was performed. COMPARISON: No exams were available for comparison FINDINGS: Seven views No evidence of obvious fracture, listhesis, nor offset of the spinal laminar line. No facet malalign ment evident. There is mild disc space narrowing the lower cervical spine. Multilevel facet arthrop athy noted. No facet malalignment evident. IMPRESSION: As above but no obvious fractures. If clinically indicated follow-up cervical spine CT scan can be p erformed. DATA REPOSITORY: RADIATION DOSE DELIVERED:
--- NOTE | 2024-07-30 10:15 | DI.RAD_ITS ---
Exam(s) XR RIBS RT W PA LAT CHEST EXAM: XR RIBS RT W PA LAT CHEST CLINICAL HISTORY: R upper chest pain after a fall, W19.XXXA TECHNIQUE: 2D digital imaging was performed.Six images were obtained. COMPARISON: CR XR PORTABLE CHEST AP from 11/08/2023 FINDINGS: MEDIASTINUM: Normal. HEART: Normal. PULMONARY VASCULATURE: There is tortuosity of the thoracic aorta. LUNGS: No focal consolidating infiltrates. PLEURAL SPACE: No pleural effusion or pneumothorax. BONE:Normal. RIGHT RIBS: Normal. No displaced right rib fractures are present. OTHER FINDINGS:Normal. IMPRESSION: 1. No acute pulmonary findings. 2. No displaced right rib fractures, pleural effusion or pneumothorax. DATA REPOSITORY: RADIATION DOSE DELIVERED:
== END 2024-07-30 11:11 ==
LOC: DI 10:53
PROVIDERS: PCP Family Medicine; Visit Provider Family Medicine
DX: W19.XXXA Unspecified fall, initial encounter (principal); M54.59 Other low back pain
CPT/HCPCS: 71046; 71100; 72050

== ENCOUNTER 2025-01-18 12:53 | Outpatient (CLI) | payer MEDICARE, SELFPAY ==
--- NOTE | 2025-01-18 11:39 | DI.RAD_ITS ---
Exam(s) XR CHEST 2V PA LATERAL EXAM: XR CHEST 2V PA LATERAL CLINICAL HISTORY: R05.9 Cough. TECHNIQUE: 2D digital imaging was performed. COMPARISON: CR XR RIBS RT W PA LAT CHEST from 07/30/2024 FINDINGS: 2 views: Left coronary artery stent again noted. Heart size is normal. The mediastinum is not widened. Lungs are clear. No infiltrates nor pleural effusions. No pulmonary edema. IMPRESSION: No acute pulmonary findings. Left coronary artery stent/LAD coronary stent again noted. Normal heart size. No CHF. DATA REPOSITORY: RADIATION DOSE DELIVERED:
== END 2025-01-18 13:13 ==
LOC: DI 12:54
PROVIDERS: PCP Family Medicine; Visit Provider Nurse Practitioner Family
DX: R05.9 Cough, unspecified (principal)
CPT/HCPCS: 71046

== ENCOUNTER 2025-01-18 15:18 | Outpatient (REF) | payer MEDICARE, SELFPAY ==
[2025-01-18 16:25] LABS: Influenza A PCR Negative (Negative); Influenza B PCR Negative (Negative); RSV PCR Negative (Negative)
[2025-01-18 16:41] LABS: COVID-19 PCR Positive (Negative); Source Nasopharynx
== END 2025-01-18 15:19 | disposition home or self-care (01) ==
LOC: LBN 15:18
PROVIDERS: PCP Family Medicine; Visit Provider Nurse Practitioner Family
DX: R50.9 Fever, unspecified (principal); U07.1 COVID-19
CPT/HCPCS: 87637